=== PATIENT | male | born 1975 | race Caucasian/White ===

== ENCOUNTER 2020-07-24 11:43 | Outpatient (CLI) | payer BC, SELFPAY ==
--- NOTE | 2020-07-24 12:24 | ECG_ITS ---
Measurements Intervals [place] Rate: 49 P: 54 [place]: 135 QRS: 64 QRSD: 104 T: 44 QT: 424 QTc: 386 Interpretive Statements SINUS BRADYCARDIA INCOMPLETE RIGHT BUNDLE BRANCH BLOCK BASELINE ARTIFACT- I, II, III ABNORMAL ECG Electronically Signed On 07-24-2020 13:04:52 CDT by Jerry Joyce D.O.
[2020-07-24 13:29] LABS: Basophils Percent Auto 0.5 % (0.2-1.2); Eosinophils Absolute Auto 0.1 K/mm3 (0-0.3); Eosinophils Percent Auto 0.9 % (0-4.4); Hematocrit 45.8 % (42.0-52.0); Hemoglobin 15.2 g/dL (14.0-18.0); Immature Granulocyte Absolute 0.02 K/mm3 (0.00-0.031); Immature Granulocyte Percent A 0.3 % (0-0.5); Lymphocytes Absolute Auto 1.76 K/mm3 (0.9-3.2); Lymphocytes Percent Auto 22.5 % (18.3-44.2); Mean Corpuscular HGB Conc 33.2 g/dl (32-36); Mean Corpuscular Hemoglobin 29.7 pg (26-34); Mean Corpuscular Volume 89.6 fl (80-100); Mean Platelet Volume 9.4 fl (7.4-10.4); Monocytes Absolute Auto 0.6 K/mm3 (0.1-0.6); Monocytes Percent Auto 7.2 % (2.6-8.5); Neutrophils Absolute Auto 5.4 K/mm3 (1.3-6.7); Neutrophils Percent Auto 68.6 % (45.5-73.1); Platelet Count Result 303 k/mm3 (150-375); Red Blood Count 5.11 M/mm3 (4.6-6.20); Red Cell Distribution Width 11.5 % (11.5-14.5); White Blood Count 7.8 K/mm3 (4.5-10.0)
[2020-07-24 13:32] LABS: Alanine Aminotransferase 19 U/L (4-50); Albumin Level 4.6 g/dL (3.5-5.1); Alkaline Phosphatase 40 U/L (38-126); Anion Gap 4 mmol/L (8-16); Aspartate Amino Transferase 31 U/L (17-59); Bilirubin,Total 0.4 mg/dL (0.2-1.3); Blood Urea Nitrogen 22 mg/dL (9-20); Calcium 9.5 mg/dL (8.4-10.2); Carbon Dioxide 34 mmol/L (22-30); Chloride 101 mmol/L (98-107); Estimated Glomerular Filt Rate 60; Glucose 101 mg/dL (75-110); Potassium 4.2 mmol/L (3.4-5.0); Sodium 139 mmol/L (137-145)
[2020-07-24 13:54] LABS: INR 0.9; Prothrombin Time 12.7 Seconds (11.1-14.7)
[2020-07-24 13:55] LABS: Partial Thromboplastin Time 26.3 SECONDS (22.3-36.8)
== END 2020-07-24 11:44 | disposition home or self-care (01) ==
LOC: ANHSURGERY 11:48
PROVIDERS: PCP Family Medicine Adolescent Medicine; Visit Provider Urology
DX: Z01.818 Encounter for other preprocedural examination (principal); C61 Malignant neoplasm of prostate; R00.1 Bradycardia, unspecified; I45.10 Unspecified right bundle-branch block; Z51.81 Encounter for therapeutic drug level monitoring; Z79.899 Other long term (current) drug therapy
CPT/HCPCS: 36415; 80053; 85025; 85610; 85730; 86850; 86900; 86901; 87086; 93005

== ENCOUNTER → 2020-07-29 00:58 | Outpatient (CLI) | payer BC, SELFPAY ==
[2020-07-29 19:43] LABS: SARS-CoV-2 RNA PCR Negative
== END ==
PROVIDERS: PCP Family Medicine Adolescent Medicine; Visit Provider Urology
DX: Z01.812 Encounter for preprocedural laboratory examination (principal); Z20.822 Contact with and (suspected) exposure to COVID-19
CPT/HCPCS: C9803; U0003; U0005

== ENCOUNTER 2020-08-02 16:08 | Observation (INO) | payer BC, SELFPAY ==
[2020-07-24 12:07] VITALS: BP 140/84; PULSE 56; RESP 18; TEMP 36.8; O2SAT 98; BMI 27.1
[2020-08-01] VITALS (13 sets, daily range): BP systolic 111–151; BP diastolic 45–97; PULSE 41–69; RESP 10–20; TEMP 35.8–37.2; O2SAT 96–100; BMI 26.4
[2020-08-01] MEDS: LACTATED RINGERS 1,000 ML 30 ML IV CONT ×3 (06:29→12:47)
--- NOTE | 2020-08-01 06:35 | WPDANESEPPF ---
Anes - Initial Pre Proc Eval Procedure: Operation Date: 08/01/20 07:30 Proposed Procedures p Robotic Assisted Nerve Sparing Prostatectomy With Possible Pelvic Lymph Node Dissection - Jose Manuel Garcia MD Date/Time: 08/01/20 06:35 Surgeon: Jose Manuel Garcia MD Pre Op Diagnosis: Prostate Cancer Patient Data Age: 44 Gender: M Height: 6 ft 3 in Weight: 98.3 kg Last Vital Signs Temp 36.8 C 07/24/20 12:07 Pulse 56 L 07/24/20 12:07 Resp 18 07/24/20 12:07 BP 140/84 07/24/20 12:07 Pulse Ox 98 07/24/20 12:07 Allergies Allergy/AdvReac Type Severity Reaction Status Date / Time No Known Allergies Allergy Verified 07/24/20 12:02 Home Medications Medication Instructions Recorded Confirmed Type albuterol 90 mcg INHALATION PRN 07/24/20 07/24/20 History buspirone 10 mg BID 07/24/20 07/24/20 History lamotrigine 75 mg QAM 07/24/20 07/24/20 History loratadine [Claritin] 10 mg PO QAM 07/24/20 07/24/20 History Patient hx anesthesia problems: none Family hx anesthesia problems: none PMFSH Past Medical History Medical History (Updated 08/01/20 @ 06:39 by Lorenzo Mcnulty MD) Depression Prostate CA Seasonal allergies Surgical History Surgical History (Updated 08/01/20 @ 06:39 by Lorenzo Mcnulty MD) H/O wrist surgery Social History Social History Smoking status: Never smoker Second hand tobacco smoke exposure: No Alcohol intake: never Substance use: never Substance use type: does not use Living arrangements: alone Spiritual care concerns: No Anes - Eval Final PreProcedure Day of Procedure 08/01/20 06:35 Patient weight: normal Heart: regular rate and rhythm Lungs: clear to auscultation Airway: Mallampati scale class 1 Neurological: alert and oriented Last oral intake: >/= 8 hours ASA classification: II Emergent: no Anesthetic plan: proceed Anesthesia type and monitoring: general ETT and standard monitoring Informed Consent: The patient's anesthetic plan and its attendant risks and benefits were discussed with the patient/family/POA. Questions were solicited and answers provided to the satisfaction of the patient/family/POA.
--- NOTE | 2020-08-01 07:02 | WPDHPUPDATE1 ---
History and Physical Update Update Date/Time: 08/01/20 07:02 History and Physical has been reviewed, including an updated exam of the patient. There are NO changes in the patient's condition. Risks, benefits, and alternatives have been discussed and questions answered. Patient agrees to proceed with procedure. Robotic assist nerve sparing prostatectomy with plnd.
[2020-08-01] MEDS: BUPIVACAINE HCL 0.5% PF 30 ML VIAL INFILTRATE (07:50)
[2020-08-01] MEDS: ceFAZolin 2 GM/D5W 50 ML 2 GM/50 ML BAG IVPB (07:50)
[2020-08-01] MEDS: ceFAZolin SODIUM 1 GM VIAL IV PUSH (11:20)
--- NOTE | 2020-08-01 11:29 | PM.PROC ---
Procedure Note - Detailed Date of procedure: 08/01/20 Pre-op diagnosis: Prostate Cancer Post-op diagnosis: same Procedure performed: Robotic assisted nerve-sparing prostatectomy with left pelvic lymph node dissection Description of procedure: Patient is taken the operative suite and correctly identified. Once anesthesia was obtained was placed in dorsal lithotomy position prepped draped usual sterile fashion. Sixteen [place] Mensah with 20 cc in the balloon was placed. Midline incision was made and carried down to the rectus fascia. Veress needle was inserted in the abdomen insufflated to 15 mmHg pressure. Camera port was then placed in direct vision. Working ports were placed in locations in the robot was docked after patient was placed in steep Trendelenburg position. He had some adhesions of the left colon. These were taken down. Posterior approach was then performed. Seminal vesicles were dissected out in their entirety. Vas were clipped. Plane between the prostate and rectum was developed. Bladder was then dropped. The space of Retzius was developed bilaterally. Puboprostatic ligaments were transected. Dorsal venous complex was isolated using 0 Vicryl suture in secured to the pubic bone. Bladder neck sparing procedure was then performed. The posterior fascia was incised to expose the previously dissected seminal vesicles and vas. Vascular pedicles were clipped. Bilateral nerve-sparing was performed. Dorsal venous complex was then transected. Urethra was also transected. Specimen was placed in Endo-Catch bag. Left pelvic lymph node dissection was then performed with the boundaries being the external iliac vein obturator, obturator nerve, Darius's ligament, and bifurcation of the vessels. This also was placed in Endo-Catch bag. We then did a Francis stitch using 0 Vicryl. Anastomosis was performed using V lock suture in a running fashion. There was good approximation of the mucosa to mucosa. Sixteen [place] Mensah was placed with 10 cc in the balloon. 120 cc of saline were injected and the bladder filled nicely without any evidence of extravasation. All lap count needle count sponge counts were correct. Nikunj drain was placed through the 3rd arm port site and secured. Robot was undocked. Specimen was brought out through the midline incision. Midline incision was closed using 0 Vicryl in a running fashion. Subcuticular stitches were then placed. Incisions were anesthetized with lidocaine. Patient is taken recovery room stable condition. Anesthesia: GETA Surgeon: Jose Manuel Garcia MD Estimated blood loss (mL): 100 Drains: Yes Packing: No Pathology: yes Complications: No immediate complications Condition: stable Disposition: PACU
[2020-08-01] MEDS: fentaNYL CITRATE INJ (*CRX) 100 MCG/2 ML VIAL 25 MCG IV PUSH ×8 (12:07→13:28)
--- NOTE | 2020-08-01 13:05 | SUR.PHASEI ---
1300 sbar faxed floor notified
--- NOTE | 2020-08-01 13:44 | ADMGEN ---
This patient, Fredrick Valenzuela, was admitted to Medical Room 251-01. Patient/family oriented to hospital policies and general routines including ID bracelet, bed and alarms, visiting hours, pain management, procedures, bathroom and other care routines, personal items, smoking policy, room service/diet, and visiting hours. Information on how to activate the Rapid Response Team has been discussed. Patient/Family are encouraged to report perceived risks to care and to ask questions if they do not understand what they are told or what they should do.
--- NOTE | 2020-08-01 13:51 | SUR.PHASEI ---
1330 Kaylin Espino RN, ta Cobb Rn FROM ABOUT 1215 UNTIL patient was sent to 2nd medical floor.
[2020-08-01] MEDS: MORPHINE SULFATE (*CRX) 2 MG/ML INJ 1 MG IV PUSH ×4 (14:00→22:51)
[2020-08-01] MEDS: LACTATED RINGERS 1,000 ML 125 ML IV CONT ×2 (14:01→22:51)
--- NOTE | 2020-08-01 14:15 | PC.NURSE ---
Patient assisted to bathroom on his request to attempt to have a BM. Patient denied dizziness or lightheadedness when getting up. Ambulated with minimal assistance to the bathroom. Once in the bathroom on the toilet, patient stated, I feel nauseated . Patient then stated I'm going to pass out. Patient started leaning back on the toilet and not answering questions. Called for emergency help to room. Patient began answering questions within seconds. Appeared very pale and diaphoretic. Assisted patient into a wheelchair with assistance and patient assisted back to bed. VS taken - HR 50, B/P 116/45, pulse ox 98%. Patient lying in bed with HOB down. States he is starting to feel better. Mother at bedside. Dr. Garica notified of incident.
[2020-08-01] MEDS: KETOROLAC 30 MG/ML VIAL (*BKC) IV PUSH ×2 (15:07→20:02)
[2020-08-01] MEDS: ONDANSETRON INJ 4 MG/2 ML VIAL IV PUSH ×2 (15:23→19:32)
[2020-08-01] MEDS: busPIRone HCL 10 MG TABLET BY MOUTH (20:06)
[2020-08-02] MEDS: KETOROLAC 30 MG/ML VIAL (*BKC) IV PUSH (02:33)
[2020-08-02] MEDS: ONDANSETRON INJ 4 MG/2 ML VIAL IV PUSH ×2 (02:38→09:09)
[2020-08-02 03:21] VITALS: BP 126/59; PULSE 58; RESP 20; TEMP 37.2; O2SAT 98
[2020-08-02 05:50] LABS: Hemoglobin 12.7 g/dL (14.0-18.0)
[2020-08-02 05:56] LABS: Anion Gap 2 mmol/L (8-16); Blood Urea Nitrogen 12 mg/dL (9-20); Calcium 8.2 mg/dL (8.4-10.2); Carbon Dioxide 31 mmol/L (22-30); Chloride 104 mmol/L (98-107); Estimated CRCL calculation 90 ml/min; Estimated Glomerular Filt Rate > 60; Glucose 104 mg/dL (75-110); Potassium 3.6 mmol/L (3.4-5.0); Sodium 137 mmol/L (137-145)
[2020-08-02] MEDS: MORPHINE SULFATE (*CRX) 2 MG/ML INJ 1 MG IV PUSH ×3 (06:18→14:25)
[2020-08-02] MEDS: LACTATED RINGERS 1,000 ML 125 ML IV CONT (06:24)
[2020-08-02 06:37] VITALS: BP 121/61; PULSE 56; RESP 20; TEMP 37.1; O2SAT 98
--- NOTE | 2020-08-02 07:53 | WPDUROPN2 ---
Progress Note: A&P Assessment and Plan (1) Adenocarcinoma of prostate: Code(s): C61 - Malignant neoplasm of prostate Status: Acute Assessment and Plan: doing well postop day 1. Most likely discharged home later today if tolerates diet and ambulating. We will see with TIM output is this neck shift. Follow-up in a week's time for with the catheter cystogram Subjective Subjective Date/Time Seen: 08/02/20 07:53 Post Op day: 1 Principal diagnosis: adenocarcinoma of prostate Interval history: no major complaints this morning. feeling better after having some nausea last Review of Systems Review of Systems: All systems reviewed & are unremarkable except as noted in HPI and below Exam Const: General: cooperative, comfortable and no acute distress Chest: Chest palpation & inspection: normal inspection of the chest Resp: Effort & Inspection: normal respiratory effort Cardio: Rate: regular rate Rhythm: regular rhythm GI: Inspection: normal to inspection GI Palp: No abdominal tenderness and Yes Soft to palpation Urinary Catheter: Urinary Catheter: patent and draining and urine clear Objective Data Vital Signs Vital Signs: Vital Signs - 24 hr 08/01/20 11:45 08/01/20 12:00 08/01/20 12:15 Temperature 36.1 C L Pulse Rate 54 L 50 L 41 L Respiratory Rate 16 15 12 Blood Pressure 111/56 L 123/97 H 136/54 L Pulse Oximetry 100 100 100 08/01/20 12:30 08/01/20 12:45 08/01/20 13:00 Temperature Pulse Rate 52 L 50 L 52 L Respiratory Rate 16 10 L 18 Blood Pressure 131/60 141/78 H 136/86 Pulse Oximetry 100 97 98 08/01/20 13:15 08/01/20 13:40 08/01/20 13:55 Temperature 35.8 C L 35.9 C L Pulse Rate 47 L 48 L 52 L Respiratory Rate 12 16 16 Blood Pressure 140/77 148/70 H 151/73 H Pulse Oximetry 96 98 100 08/01/20 14:25 08/01/20 15:25 08/01/20 23:21 Temperature 35.9 C L 36.6 C 37.2 C Pulse Rate 50 L 49 L 59 L Respiratory Rate 18 18 20 Blood Pressure 116/45 L 137/63 131/63 Pulse Oximetry 99 100 99 08/02/20 03:21 08/02/20 06:37 Temperature 37.2 C 37.1 C Pulse Rate 58 L 56 L Respiratory Rate 20 20 Blood Pressure 126/59 L 121/61 Pulse Oximetry 98 98 Intake/Output Intake/Output: Intake & Output 07/30/20 07/31/20 08/01/20 08/02/20 23:59 23:59 23:59 23:59 Intake Total 2400 1950 Output Total 670 1260 Balance 1730 690 Meds/Results Medications: Active Medications Generic Name Dose Route Start Last Admin Trade Name Freq PRN Reason Stop Dose Admin Hydrocodone Bitart/Acetaminophen 1 tab 08/01/20 13:36 Hydrocodone/Acetaminophen (*Crx) 5-325 Mg Tablet PO Q6H PRN Pain Rated 1-3 Hydrocodone Bitart/Acetaminophen 2 tab 08/01/20 13:36 Hydrocodone/Acetaminophen (*Crx) 5-325 Mg Tablet PO Q6H PRN Pain Rated 4-6 Albuterol 2 puff 08/01/20 14:16 Albuterol Sulfate (*Sp) Aerosol 1 Puff INHALATION QIDRT PRN Shortness Of Breath Buspirone HCl 10 mg 08/01/20 21:00 08/01/20 20:06 Buspirone Hcl 10 Mg Tablet BY MOUTH 10 mg Q12HR PAULETTE Administration Docusate Sodium 100 mg 08/01/20 17:00 08/01/20 16:35 Docusate Sodium 100 Mg Capsule PO Not Given BID PAULETTE Hyoscyamine 0.125 mg 08/01/20 13:36 Hyoscyamine Sulfate 0.125 Mg Tablet SUBLINGUAL Q4H PRN Bladder Spasm Lactated Ringer's 1,000 mls @ 125 mls/hr 08/01/20 13:36 08/02/20 06:24 Lr - Lactated Ringers Iv IV CONT 125 mls/hr .Q8H PAULETTE Administration Lamotrigine 75 mg 08/02/20 09:00 Lamotrigine 25 Mg Tablet BY MOUTH QAM PAULETTE Levofloxacin 500 mg 08/02/20 09:00 Levofloxacin Tab 500 Mg Tablet PO DAILY PAULETTE Loratadine 10 mg 08/02/20 09:00 Loratadine 10 Mg Tablet PO QAM PAULETTE Morphine Sulfate 1 mg 08/01/20 13:36 08/02/20 06:18 Morphine Sulfate (*Crx) 2 Mg/Ml Inj IV PUSH 1 mg Q2H PRN Administration Pain Rated 7-10 Naloxone HCl 0.1 mg 08/01/20 13:36 Naloxone Hcl 0.4 Mg/Ml Vial IV PUSH Q2M P
[2020-08-02] MEDS: busPIRone HCL 10 MG TABLET BY MOUTH ×2 (09:06→19:51)
[2020-08-02] MEDS: LORATADINE 10 MG TABLET PO (09:07)
[2020-08-02] MEDS: DOCUSATE SODIUM 100 MG CAPSULE PO ×2 (09:07→19:52)
[2020-08-02] MEDS: lamoTRIgine 25 MG TABLET 75 MG BY MOUTH (09:07)
[2020-08-02] MEDS: HYDROcodone/acetaminophen (*CRX) 5-325 MG TABLET 2 TAB PO ×2 (09:07→15:17)
--- NOTE | 2020-08-02 09:22 | WPDANESPN ---
Anes - Prog Note Post-Op Date/Time: 08/02/20 09:22 Cardiovascular status: normal Respiratory status: normal Airway patency: baseline Mental status: baseline Post-Op hydration status: normal Vital Signs: Last Vital Signs Temp 37.1 C 08/02/20 06:37 Pulse 56 L 08/02/20 06:37 Resp 20 08/02/20 06:37 BP 121/61 08/02/20 06:37 Pulse Ox 98 08/02/20 06:37 Pain Score (VAS): no c/o pain I/O: Intake & Output 08/01/20 08/02/20 08/02/20 23:59 07:59 15:59 Intake Total 1850 1950 Output Total 510 1260 Balance 1340 690 Laboratory Tests 08/02/20 05:28 08/02/20 05:28 08/02/20 08/02/20 05:28 05:28 Hgb 12.7 L Hct 37.0 L Sodium 137 Potassium 3.6 Chloride 104 Carbon Dioxide 31 H Anion Gap 2 L BUN 12 D Creatinine 1.10 Estim Creat Clear Calc 90 Estimated GFR > 60 Glucose 104 Calcium 8.2 L Post-procedural complaints: none Patient Feedback: Patient satisfied with anesthetic care.
[2020-08-02 09:45] VITALS: BP 136/60; PULSE 69; RESP 16; TEMP 37.1; O2SAT 97
--- NOTE | 2020-08-02 12:00 | PC.NURSE ---
Patient encouraged to get up and walk and/or sit in chair. Patient sat in chair for a short time and stated he felt a little lightheaded . Has been in bed since and has not been agreeable to getting up to ambulate. Will continue to encourage patient.
[2020-08-02 14:00] VITALS: BP 145/68; PULSE 67; RESP 18; TEMP 36.1; O2SAT 97
--- NOTE | 2020-08-02 18:17 | PC.NURSE ---
Called Dr. Garcia and left voice message requesting IVF be d/nona. Patient tolerating po fluids and has had >3000 cc out in ambrocio catheter.
[2020-08-02 19:20] VITALS: BP 140/77; PULSE 66; RESP 16; TEMP 36.8; O2SAT 100
--- NOTE | 2020-08-02 19:27 | PC.NURSE ---
Patient turned his own IVF off stating I don't need any more fluids . Patient is tolerating po fluids well and has not had any vomiting. 3000cc output in ambrocio catheter today. Unable to reach Karolina HESS or Dr. Garcia regarding IVFs. Left message at office for Karolina HESS and left message on Dr. Garcia' cell phone regarding same. Patient does not wish to have his IVF restarted.
[2020-08-02] MEDS: KETOROLAC 10 MG TABLET PO (19:51)
[2020-08-03] MEDS: HYDROcodone/acetaminophen (*CRX) 5-325 MG TABLET 2 TAB PO ×2 (00:33→08:16)
[2020-08-03 04:35] VITALS: BP 122/74; PULSE 58; RESP 14; TEMP 36.3; O2SAT 98
[2020-08-03] MEDS: LORATADINE 10 MG TABLET PO (08:12)
[2020-08-03] MEDS: DOCUSATE SODIUM 100 MG CAPSULE PO (08:12)
[2020-08-03] MEDS: busPIRone HCL 10 MG TABLET BY MOUTH (08:12)
[2020-08-03] MEDS: lamoTRIgine 25 MG TABLET 75 MG BY MOUTH (08:12)
[2020-08-03 08:19] VITALS: RESP 16; O2SAT 98
--- NOTE | 2020-08-03 12:47 | WPDUROPN2 ---
Progress Note: A&P Assessment and Plan (1) Adenocarcinoma of prostate: Code(s): C61 - Malignant neoplasm of prostate Status: Acute Assessment and Plan: Ok to discharge home with ambrocio. Subjective Subjective Date/Time Seen: 08/03/20 12:47 Post Op day: 2 Principal diagnosis: adenocarcinoma of prostate Interval history: no major complaints this morning. feeling better after having some nausea yesterday and pain. Wants to go home, sitting up in chair this morning. TIM drain removed yesterday, minimal bleeding observed on dressing, it is dry and intact. Review of Systems Cardiovascular: Cardiovascular: Denies chest pain Respiratory: Respiratory: Reports no additional respiratory complaints Gastrointestinal: Gastrointestinal: Denies abdominal pain, Denies nausea and Denies vomiting Genitourinary: Genitourinary: Denies flank pain Exam Resp: Effort & Inspection: normal respiratory effort Cardio: Rate: regular rate GI: Inspection: incision (all are well approximated, no drainage, edema or redness) GI Palp: Yes Soft to palpation, No Tenderness to palpation present (GI) and Yes Other GI palpation findings present (TIM drain site is covered with a dry dressing, minimal bleeding present) : General: No no CVA tenderness Urinary Catheter: Urinary Catheter: patent and draining and urine clear Extrem: General: no edema Objective Data Vital Signs Vital Signs: Vital Signs - 24 hr 08/02/20 14:00 08/02/20 19:20 08/03/20 04:35 Temperature 96.9 F L 98.3 F 97.4 F L Pulse Rate 67 66 58 L Respiratory Rate 18 16 14 Blood Pressure 145/68 H 140/77 122/74 Pulse Oximetry 97 100 98 08/03/20 08:19 Temperature Pulse Rate Respiratory Rate 16 Blood Pressure Pulse Oximetry 98 Intake/Output Intake/Output: Intake & Output 07/31/20 08/01/20 08/02/20 08/03/20 23:59 23:59 23:59 23:59 Intake Total 2400 3820 1340 Output Total 515 4255 2500 Balance 7682 -282 -6875
--- NOTE | 2020-08-03 12:49 | PM.DS ---
DS: Admitting Diagnosis Admitting Diagnosis Admitting Diagnosis: Prostate Cancer DS: Discharge Diagnosis Discharge Diagnosis (1) Adenocarcinoma of prostate: Code(s): C61 - Malignant neoplasm of prostate Status: Acute DS: Summary Hospital Course Hospital Course: See below Time Spent with Patient Time attestation: Patient underwent a Robotic assisted nerve-sparing prostatectomy with left pelvic lymph node dissection on 08/01/2020. He tolerated the procedure well done by Dr. Gareth Garcia was transferred to recovery in stable condition and to the floor for further observation. He had significant drainage initially from his TIM drain which did taper off yesterday and it was removed without problem. He also struggled with nausea and pain post operatively, this is well controlled today. He will go home today with ambrocio catheter to be removed after Cystogram next week, on all previous home medications including hydrocodone, levsin, bactrim and colace. He will resume light activity, no straining or driving. Resume diet as tolerated. Exam Resp: Effort & Inspection: normal respiratory effort Cardio: Rate: regular rate GI: GI Palp: Yes Soft to palpation and No Tenderness to palpation present (GI) : General: Yes no CVA tenderness Urinary Catheter: Urinary Catheter: patent and draining and urine clear Extrem: General: no edema DS: Data Data Completed and Pending Pending studies at discharge: Pending at discharge 08/01/20 10:25 Surgical [PTH] Routine Discharge Plan Discharge Attending physician on discharge: Jose Manuel Garcia Discharging Clinician: Karolina Fagan Anticipated Discharge Date/Time: 08/03/20 10:27 Patient Disposition: Home, Self-Care Activity: may shower, no straining and may drive after 2 weeks Diet: as tolerated Wound Care Instructions: keep dressing dry and incision open to air Discharge Instructions: Follow up next week for Cystogram on 08/09/2020 at 11am arrive at 10:30, then immediately after come into the office for catheter removal pending cystogram results. Call the office if you develop a fever of >102, cloudy, malodorous urine or blood in the urine. Call the office if your incisions should start to drain. Change drain site dressing daily and PRN. Wash all incisions with soap and water and pat dry. Do not immerse in water such as a bath tub, swimming pool or hot tub. Patient Instructions: Ambrocio Catheter Placement and Care (DC), Urinary Leg Bag (GEN), Robot Assisted Laparoscopic Prostatectomy (GEN) Follow-up/Referrals: Jose Manuel Garcia MD [Physician] - Discharge Medications: New docusate sodium 100 mg Capsule 100 mg PO BID Qty: 14 RF: 0 hyoscyamine sulfate [Anaspaz] 0.125 mg Tablet,Disintegrating 0.125 mg sublingual Q4H PRN (Reason: Bladder Spasm) Qty: 20 RF: 0 ketorolac 10 mg Tablet 10 mg PO Q6H PRN (Reason: Pain Rated 4-6) 7 Days Qty: 28 RF: 0 sulfamethoxazole-trimethoprim [Bactrim DS] 800-160 mg tablet 1 tablet PO DAILY Qty: 7 RF: 0 Continued lamotrigine 25 mg tablet 75 mg QAM RF: 0 buspirone 10 mg tablet 10 mg BID RF: 0 albuterol 90 mcg/actuation Aerosol 90 mcg INHALATION PRN RF: 0 loratadine [Claritin] 10 mg Tablet 10 mg PO QAM RF: 0 Date of admission: 08/02/20 16:08 Primary Care Provider: Alon Krause Admitting Provider: Jose Manuel Garcia Attending physician on admission: Jose Manuel Garcia Condition: Improved
== END 2020-08-03 11:30 | disposition home or self-care (01) ==
LOC: ANHSURGERY 16:13 → ANH2MED 16:13
PROVIDERS: Admitting Provider Urology; PCP Family Medicine Adolescent Medicine; Visit Provider Urology
PROC: 0VT04ZZ Resection of Prostate, Percutaneous Endoscopic Approach (ICD-10-PCS; CPT 55867; principal; 2020-08-01 07:30)
DX: C61 Malignant neoplasm of prostate (principal); G89.18 Other acute postprocedural pain; R11.0 Nausea; F32.9 Major depressive disorder, single episode, unspecified; Z79.51 Long term (current) use of inhaled steroids
CPT/HCPCS: 55866; 38571; S2900; 36415; 80048; 85014; 85018; 88307; 88309; A9270; G0378; J0690; J1100; J1170; J1885; J2250; J2270; J2405; J2704; J2710; J3010; J7030; J7120

== ENCOUNTER 2020-08-09 10:29 | Outpatient (CLI) | payer BC, SELFPAY ==
--- NOTE | ~2020-08-09 | XR_ITS ---
EXAMINATION: XR cystogram EXAM DATE: 08/09/2020 11:08 INDICATION: Prostate cancer, prostatectomy. TECHNIQUE: Fluoroscopic guidance used during cystogram performed by Dr. Lacho Dave, radiologist, [facility] Mensah catheter in place on patient arrival. An Omnipaque 350/saline solution was used and allowe d to infuse through the Mensah catheter under gravity. Aquatic Biologist image, fluoroscopic images and postevacua tion image were obtained. Total fluoroscopic time of 0.1. The DAP for this procedure was 9 mGym2. A total of 22 images obtained for the exam. There is no prior study for comparison. FINDINGS: Aquatic Biologist image is unremarkable. Patient tolerated approximately 350 milliliters of distention. There was no contrast extravasation or ureteral reflux. Smooth bladder wall. IMPRESSION: Normal cystogram. Reviewed, dictated and finalized at location A. IMPRESSION: Normal cystogram.
== END 2020-08-09 10:30 | disposition home or self-care (01) ==
PROVIDERS: PCP Family Medicine Adolescent Medicine; Visit Provider Urology
DX: C61 Malignant neoplasm of prostate (principal)
CPT/HCPCS: 51600; 74430; Q9967

== ENCOUNTER 2021-02-23 10:37 | Outpatient (CLI) | payer BC, SELFPAY ==
--- NOTE | ~2021-02-23 | MR_ITS ---
EXAMINATION: MR pelvis wo/w con INDICATION: Malignant neoplasm of prostate TECHNIQUE: 3D Axial T2 Cube, Axial 2D FIESTA, Coronal SSFSE ARC, Axial and Coronal 2D FIESTA FatSat, Axial T2 FS, Axial SSFSE BH ARC, Axial 3D DualEcho BH, Axial SSFSE-IR Francesco, Axial DWI b=600, pre and d ynamic postcontrast Axial LAVA ARC, WATER:POST Cor LAVA-FLEX COMPARISON: None available CONTRAST: Multihance, 19 cc FINDINGS: There are changes of prostatectomy. No pathologically enlarged pelvic lymph nodes are ident ified. There are no dilated loops of bowel. Moderate lumbar spondylosis is noted. No abnormal enhance ment is present after contrast administration. IMPRESSION: 1. Changes of prostatectomy without evidence of metastatic disease. Reviewed, dictated and finalized at location B. EREAU CLERK
[2021-02-23 11:09] LABS: Estimated Glomerular Filt Rate 59
== END 2021-02-23 10:38 | disposition home or self-care (01) ==
PROVIDERS: PCP Family Medicine Adolescent Medicine; Visit Provider Radiology Radiation Oncology
DX: C61 Malignant neoplasm of prostate (principal); Z90.79 Acquired absence of other genital organ(s)
CPT/HCPCS: 72197; A9577

== ENCOUNTER 2022-01-16 10:26 | Outpatient (CLI) | payer BC, SELFPAY ==
[2022-01-16 10:58] LABS: Alanine Aminotransferase 18 U/L (6-50); Albumin Level 4.2 g/dL (3.5-5.1); Alkaline Phosphatase 42 U/L (38-126); Anion Gap 5 mmol/L (8-16); Aspartate Amino Transferase 28 U/L (17-59); Bilirubin,Total 0.5 mg/dL (0.2-1.3); Blood Urea Nitrogen 21 mg/dL (9-20); Calcium 9.1 mg/dL (8.4-10.2); Carbon Dioxide 31 mmol/L (22-30); Chloride 101 mmol/L (98-107); Cholesterol 193 mg/dL (0-200); Estimated Glomerular Filt Rate > 60; Glucose 103 mg/dL (65-110); HDL Direct 61 mg/dL; Potassium 4.3 mmol/L (3.4-5.0); Sodium 137 mmol/L (137-145); Triglycerides 64 mg/dL (<150)
[2022-01-16 11:09] LABS: LDL Cholesterol Direct 99 mg/dL
[2022-01-16 11:28] LABS: Prostate Specific Antigen < 0.1 ng/mL (< OR = 4.0)
== END 2022-01-16 10:27 | disposition home or self-care (01) ==
PROVIDERS: PCP Family Medicine Adolescent Medicine; Referring Provider Urology; Visit Provider Family Medicine Adolescent Medicine
DX: C61 Malignant neoplasm of prostate (principal); J45.20 Mild intermittent asthma, uncomplicated; Z13.220 Encounter for screening for lipoid disorders
CPT/HCPCS: 36415; 80053; 80061; 84153

== ENCOUNTER 2022-08-27 10:13 | Outpatient (CLI) | payer BC, SELFPAY ==
[2022-08-27 11:43] LABS: Prostate Specific Antigen < 0.1 ng/mL (< OR = 4.0)
== END 2022-08-27 10:14 | disposition home or self-care (01) ==
PROVIDERS: PCP Family Medicine Adolescent Medicine; Visit Provider Urology
DX: C61 Malignant neoplasm of prostate (principal)
CPT/HCPCS: 36415; 84153

== ENCOUNTER 2022-09-17 01:09 | Day surgery (SDC) | payer BC, SELFPAY ==
[2022-09-11 11:48] VITALS: BMI 26.2
--- NOTE | 2022-09-17 10:46 | P.PNAN_ITS ---
Anes - Initial Pre Proc Eval Procedure: Operation Date: 09/17/22 14:15 Proposed Procedures p Colonoscopy - Leonard Mark MD Date/Time: 09/17/22 10:46 Surgeon: Leonard Mark MD Pre Op Diagnosis: hemorrhage of anus and rectum Patient Data Age: 46 Gender: M Height: 1.91 m Weight: 95.3 kg Allergies Allergy/AdvReac Type Severity Reaction Status Date / Time No Known Allergies Allergy Verified 09/17/22 13:00 Home Medications Medication Instructions Recorded Confirmed Type loratadine 10 mg tablet (Claritin) 10 mg PO QAM 07/24/20 09/11/22 History albuterol sulfate 90 mcg/actuation 1 inh inhalation Q4H PRN shortness 12/06/21 09/11/22 Rx aerosol inhaler of breath or wheezing #8.5 grams lorazepam 1 mg tablet 1 mg PO TID PRN anxiety #30 tabs 12/06/21 09/11/22 Rx buspirone 10 mg tablet 10 mg PO BID #180 tabs 06/12/22 09/11/22 Rx lamotrigine 100 mg tablet 100 mg PO BID #180 tabs 06/12/22 09/11/22 Rx diclofenac sodium 1 % topical gel 1 g topical QID #100 grams 09/03/22 09/11/22 Rx Patient hx anesthesia problems: none Family hx anesthesia problems: none Results Review: All pre-operative results and documents have been reviewed as part of the pre- operative evaluation. [facility] Past Medical History Medical History (Updated 09/17/22 @ 10:47 by Zain Clark MD) Asthma, mild intermittent Depression Dupuytren's contracture of right hand History of prostate cancer (09/2019) Seasonal allergies Surgical History Surgical History H/O wrist surgery History of radical prostatectomy (07/2020) Family History Family History (Updated 12/06/21 @ 11:39 by Carolyne Diego MA) Mother Depression Father Malignant neoplasm of prostate Bladder cancer Grandparent Heart disease Hypertension Carcinoma of colon Parkinson disease Alzheimer disease Social History Social History (Updated 12/06/21 @ 11:39 by Carolyne Diego MA) Smoking status: Never smoker Second hand tobacco smoke exposure: No Alcohol intake: never Substance use: never Substance use type: does not use Living arrangements: alone Occupation/Education: occupation Gender identity (if verbalized by the patient): Male Spiritual care concerns: No Anes - Eval Final PreProcedure Day of Procedure 09/17/22 10:46 Patient weight: normal Heart: regular rate and rhythm Lungs: clear to auscultation Airway: Mallampati scale class 1 Neurological: alert and oriented Last oral intake: >/= 8 hours ASA classification: III Emergent: no Anesthetic plan: proceed Anesthesia type and monitoring: general GIVS and standard monitoring Results Review: All pre-operative results and documents have been reviewed as part of the pre- operative evaluation. Informed Consent: The patient's anesthetic plan and its attendant risks and benefits were discussed with the patient/family/POA. Questions were solicited and answers provided to the satisfaction of the patient/family/POA.
[2022-09-17 13:03] VITALS: BP 126/90; PULSE 71; RESP 20; TEMP 36.1; O2SAT 99
[2022-09-17] MEDS: LACTATED RINGERS 1,000 ML 150 ML IV CONT (13:20)
--- NOTE | 2022-09-17 14:17 | PM.HPGS ---
History of Present Illness History of Present Illness Consent: Risks, benefits, and alternatives have been discussed and questions answered. Patient agrees to proceed with procedure. Chief complaint: hemorrhage of anus and rectum Narrative: Fredrick Valenzuela is a 46 year old male with episode of rectal bleeding, never had colonoscopy, had prostate cancer with surgery and XRT Review of Systems Constitutional: Constitutional: Denies headache(s) and Denies weakness Eyes: Eyes: Denies blurry vision ENT: Reports Normal hearing present, Denies headache(s) and Denies neck pain Cardiovascular: Cardiovascular: Denies chest pain and Denies dyspnea Respiratory: Respiratory: Denies dyspnea Gastrointestinal: Gastrointestinal: Reports no additional gastrointestinal complaints Genitourinary: Genitourinary: Denies dysuria Musculoskeletal: Musculoskeletal: Denies neck pain Integumentary/Breasts: Skin/Breast: Denies dry skin Neurologic: Reports Normal hearing present, Denies headache(s) and Denies weakness Psychiatric: Psychiatric: Denies anxiety Endocrine: Endocrine: Denies change in body appearance Hematologic/Lymphatic: Hematologic/Lymphatic: Denies easy bleeding Allergic/Immunologic: Allergic/Immunologic: Denies urticaria PMFSH Past Medical History Medical History (Updated 09/17/22 @ 10:47 by Zain Clark MD) Asthma, mild intermittent Depression Dupuytren's contracture of right hand History of prostate cancer (09/2019) Seasonal allergies Surgical History Surgical History H/O wrist surgery History of radical prostatectomy (07/2020) Family History Family History (Updated 12/06/21 @ 11:39 by Carolyne Diego MA) Mother Depression Father Malignant neoplasm of prostate Bladder cancer Grandparent Heart disease Hypertension Carcinoma of colon Parkinson disease Alzheimer disease Social History Social History (Updated 12/06/21 @ 11:39 by Carolyne Diego MA) Smoking status: Never smoker Second hand tobacco smoke exposure: No Alcohol intake: never Substance use: never Substance use type: does not use Living arrangements: alone Occupation/Education: occupation Gender identity (if verbalized by the patient): Male Spiritual care concerns: No Meds Home Medications and Allergies Home Medications Medication Instructions Recorded Confirmed Type loratadine 10 mg tablet (Claritin) 10 mg PO QAM 07/24/20 09/11/22 History albuterol sulfate 90 mcg/actuation 1 inh inhalation Q4H PRN shortness 12/06/21 09/11/22 Rx aerosol inhaler of breath or wheezing #8.5 grams lorazepam 1 mg tablet 1 mg PO TID PRN anxiety #30 tabs 12/06/21 09/11/22 Rx buspirone 10 mg tablet 10 mg PO BID #180 tabs 06/12/22 09/11/22 Rx lamotrigine 100 mg tablet 100 mg PO BID #180 tabs 06/12/22 09/11/22 Rx diclofenac sodium 1 % topical gel 1 g topical QID #100 grams 09/03/22 09/11/22 Rx Allergies Allergy/AdvReac Type Severity Reaction Status Date / Time No Known Allergies Allergy Verified 09/17/22 13:00 Vital Signs Vital Signs - 24 hr 09/17/22 13:03 Temperature 97 F L Pulse Rate 71 Respiratory Rate 20 Blood Pressure 126/90 Pulse Oximetry 99 Oxygen Delivery Room Air Exam Const: General: comfortable and no acute distress HENMT: Face/Nose/Sinus: Normal nares present Eyes: General: appearance normal, both eyes and all related structures Neck: Neck: no JVD Resp: Auscultation: clear to auscultation bilaterally Cardio: Rate: regular rate Rhythm: regular rhythm GI: Inspection: non-distended GI Palp: Yes Soft to palpation Skin: General skin exam: normal color Neuro: General: gait normal Speech: normal speech Extrem: General: normal to inspection Psych: Mental Status: mental status grossly normal Assessment and Plan Assessment and plan (1) Rectal bleeding: Code(s): K62.5 - Hemorrhage of anus and rec
[2022-09-17 14:33] VITALS: BP 106/73; PULSE 56; RESP 22; O2SAT 99
[2022-09-17 14:43] VITALS: BP 105/63; PULSE 60; RESP 18; O2SAT 98
[2022-09-17 14:53] VITALS: BP 110/77; PULSE 66; RESP 18; O2SAT 98
== END 2022-09-17 15:04 | disposition home or self-care (01) ==
PROVIDERS: PCP Family Medicine Adolescent Medicine; Visit Provider Internal Medicine Gastroenterology
PROC: 0DJD8ZZ Inspection of Lower Intestinal Tract, Via Natural or Artificial Opening Endoscopic (ICD-10-PCS; CPT 45378; principal; 2022-09-17 14:15)
DX: Z12.11 Encounter for screening for malignant neoplasm of colon (principal); D12.3 Benign neoplasm of transverse colon; K55.20 Angiodysplasia of colon without hemorrhage; K64.8 Other hemorrhoids; K92.1 Melena; Z85.46 Personal history of malignant neoplasm of prostate; J45.20 Mild intermittent asthma, uncomplicated; F32.A Depression, unspecified; Z79.51 Long term (current) use of inhaled steroids
CPT/HCPCS: 45385; 45388; 88305; J2704; J7120

== ENCOUNTER 2023-03-11 14:01 | Outpatient (CLI) | payer BC, SELFPAY ==
[2023-03-11 15:26] LABS: Prostate Specific Antigen < 0.1 ng/mL (< OR = 4.0)
== END 2023-03-11 14:02 | disposition home or self-care (01) ==
PROVIDERS: PCP Family Medicine Adolescent Medicine; Visit Provider Urology
DX: C61 Malignant neoplasm of prostate (principal)
CPT/HCPCS: 36415; 84153

== ENCOUNTER → 2023-05-08 12:40 | Outpatient (CLI) | payer OTHER, SELFPAY ==
--- NOTE | ~2023-05-08 | MR_ITS ---
MRI of the lumbar spine Clinical History: Radiculopathy Technique: Axial T2-weighted images, and sagittal T1-weighted, T2-weighted, and T2 fat-sat images wer e acquired. Findings: There is no fracture or subluxation of the lumbar spine. Vertebral bodies maintain normal h eight and alignment. No suspicious bone marrow signal abnormality seen. At L1-L2, there is no disc bulge or herniation. There is moderate facet arthropathy. No central canal stenosis or neural foraminal narrowing. At L2-L3, there is no disc bulge or herniation. There is moderate facet arthropathy. No central canal stenosis or neural foraminal narrowing. L3-L4, there is minimal disc bulge and moderate facet arthropathy. No central canal stenosis. There i s moderate right neural foraminal narrowing, and mild left neural foraminal narrowing. L4-L5, there is mild disc bulge and advanced facet arthropathy. There is no central canal stenosis. T here is moderate left neural foraminal narrowing, and no significant right neural foraminal narrowing . At L5-S1, there is left paracentral to left foraminal disc extrusion, which impinges the descending l eft-sided S1-S2 level nerve root. There is moderate to advanced left neural foraminal narrowing at th is level as well. There is moderate right neural foraminal narrowing. No central canal stenosis, thou gh there is mild effacement of the anterior left side of the thecal sac at this level. Paravertebral soft tissues are unremarkable. Impression: Left paracentral to left foraminal disc extrusion at L5-S1, which narrows the left neural foramen at this level, and also impinges the descending left-sided S1-S2 level nerve root. Additional mild degenerative changes, as above. Reviewed, dictated and finalized at location . [employer]SEM[employer] Impression: Left paracentral to left foraminal disc extrusion at L5-S1, which narrows the l eft neural foramen at this level, and also impinges the descending left-sided S 1-S2 level nerve root. Additional mild degenerative changes, as above.
== END ==
PROVIDERS: PCP Anesthesiology Pain Medicine; Visit Provider Anesthesiology Pain Medicine
DX: M51.36 Other intervertebral disc degeneration, lumbar region (principal); M51.26 Other intervertebral disc displacement, lumbar region
CPT/HCPCS: 72148

== ENCOUNTER 2023-10-09 16:51 | Outpatient (CLI) | payer OTHER, SELFPAY ==
[2023-10-09 17:54] LABS: Prostate Specific Antigen < 0.1 ng/mL (< OR = 4.0)
== END 2023-10-09 16:52 | disposition home or self-care (01) ==
LOC: ANHLAB 16:53
PROVIDERS: PCP Family Medicine Adolescent Medicine; Visit Provider Urology
DX: C61 Malignant neoplasm of prostate (principal)
CPT/HCPCS: 36415; 84153

== ENCOUNTER 2024-02-12 14:13 | Outpatient (CLI) | payer OTHER, SELFPAY ==
--- NOTE | ~2024-02-12 | XR_ITS ---
MODIFIED ESOPHAGRAM HISTORY: Dysphagia. TECHNIQUE: Modified barium esophagram was performed on 02/12/2024. I administered fluoroscopy and per formed the exam with speech pathologist. Patient was seated for lateral fluoroscopic imaging for ing estion of thin liquids, pudding, solids and quantified amounts, followed by thin liquids in uncontrol led amounts. This was recorded on tape. A single fluoroscopic spot image was also recorded. The DAP f or this procedure was 1.239 Gycm2. The amount of fluoroscopy time used during this procedure was 0.9 minutes. FINDINGS: Oral stage: Adequate function. Pharyngeal stage: Adequate function. Cervical/esophageal stage: Adequate function. IMPRESSION: Patient tolerated regular consistency oral feedings in the upright position. Please edwardo elate with speech pathologist findings and specific feeding recommendations. Reviewed, dictated and finalized at location A. IMPRESSION: Patient tolerated regular consistency oral feedings in the upright position. Please correlate with speech pathologist findings and specific feedi ng recommendations.
[2024-02-12 16:13] LABS: Prostate Specific Antigen < 0.1 ng/mL (< OR = 4.0)
--- NOTE | 2024-02-12 16:45 | REHSTMBS ---
Assessment and note entered by Ree Calvert, HOME CARE MUSIC THERAPIST Modified Barium Swallow Evaluation Feeding Type Recommended Oral Food Consistency Regular, Level 7 Liquid Consistency Thin (0) ST Clinical Summary MODIFIED BARIUM SWALLOW STUDY Patient was seen for a Modified Barium Swallow study due to patient's complaints of food hanging up in the base of his throat, for about 2-3 years, worsening more recently. He reports that he has to crush his medications to take them safely and must sit upright, and alternate liquids with his solids in order to help them god down. Patient reported history of prostate cancer and GERD but no trauma or injury to the throat. Patient was viewed in the lateral position to the level of C5/C6. He was presented with thin liquid per cup, pudding mixed with semi-solid contrast medium, and then fruit cocktail and louis cracker pieces both coated with the pudding mixture. Patient also was given a barium pill with water. Patient exhibited quick swallows with no evidence of risk for penetration/aspiration. Patient may remain on regular diet and liquid consistencies. He was instructed to take small bites and sips, alternate liquids with solids. He may try whole pills again. He is referred back to his physician for further assessment of his complaints.
== END 2024-02-12 14:14 | disposition home or self-care (01) ==
LOC: ANHIMG 14:15
PROVIDERS: PCP Family Medicine Adolescent Medicine; Visit Provider Family Medicine Adolescent Medicine
DX: R13.10 Dysphagia, unspecified (principal); Z85.46 Personal history of malignant neoplasm of prostate
CPT/HCPCS: 36415; 84153; 92611

== ENCOUNTER 2024-03-24 12:49 | Outpatient (CLI) | payer OTHER, SELFPAY ==
--- NOTE | 2024-03-24 14:30 | NEURO_ITS ---
Impression: # Complains of numbness of left 4th and 5th fingers. ? # No Carpal Tunnel Syndrome. ? # Left ulnar neuropathy across the elbow. ? # Normal needle/EMG exam. Nerve Conduction Studies Anti Sensory Summary Table ?Stim Site NR Peak (ms) P-T Amp (?V) Site1 Site2 Delta-P (ms) Dist (cm) Boyd (m/s) Left Median Anti Sensory (2-3nd Digit) Wrist ? 4.5 32.2 Wrist 2-3nd Digit 4.5 14.0 31 Wrist ? 4.6 19.8 Wrist 2-3nd Digit 4.5 14.0 31 Left Radial Anti Sensory (Base 1st Digit) Wrist ? 2.3 23.9 Wrist Base 1st Digit 2.3 0.0 Left Ulnar Anti Sensory (5th Digit) Wrist ? 3.3 21.8 Wrist 5th Digit 3.3 14.0 42 Motor Summary Table ?Stim Site NR Onset (ms) O-P Amp (mV) Site1 Site2 Delta-0 (ms) Dist (cm) Boyd (m/s) Left Median Motor (Abd Poll Brev) Wrist ? 3.9 5.5 Elbow Wrist 6.4 36.0 56 Elbow ? 10.3 4.9 Left Ulnar Motor (Abd Dig Minimi) Wrist ? 2.8 4.8 A Elbow Wrist 7.2 35.0 49 A Elbow ? 10.0 4.0 B Elbow Wrist 5.0 27.0 54 B Elbow ? 7.8 8.8 F Wave Studies ?NR F-Lat (ms) L-R F-Lat (ms) Left Median (Mrkrs) (Abd Poll Brev) ? 31.87 Left Ulnar (Mrkrs) (Abd Dig Min) ? 32.75 EMG ?Side Muscle Nerve Root Ins Act Fibs Amp Dur Recrt Comment Left 1stDorInt Ulnar C8-T1 Nml Nml Nml Nml Nml Left Ext Indicis Radial (Post Int) C7-8 Nml Nml Nml Nml Nml Left Ext Digitorum Radial (Post Int) C7-8 Nml Nml Nml Nml Nml Left BrachioRad Radial C5-6 Nml Nml Nml Nml Nml Left PronatorTeres Median C6-7 Nml Nml Nml Nml Nml Left Abd Poll Brev Median C8-T1 Nml Nml Nml Nml Nml Left ABD Dig Min Ulnar C8-T1 Nml Nml Nml Nml Nml Left Biceps Musculocut C5-6 Nml Nml Nml Nml Nml Left Triceps Radial C6-7-8 Nml Nml Nml Nml Nml Left Deltoid Axillary C5-6 Nml Nml Nml Nml Nml MTDD
== END 2024-03-24 12:50 | disposition home or self-care (01) ==
PROVIDERS: PCP Family Medicine Adolescent Medicine; Visit Provider Family Medicine Adolescent Medicine
DX: G56.22 Lesion of ulnar nerve, left upper limb (principal)
CPT/HCPCS: 95886; 95909

== ENCOUNTER 2024-08-05 14:28 | Outpatient (CLI) | payer OTHER, SELFPAY ==
[2024-08-05 14:55] LABS: Add Urine Microscopic? NO; Appearance Urine Clear (Clear); Bilirubin Urine Negative (Negative); Blood Urine Negative (Negative); Color Urine Yellow (Yellow); Glucose Urine UA Negative (Negative); Ketones Urine Negative (Negative); Leukocyte Esterase Ur Negative LEU/UL (Negative); Nitrate Urine Negative (Negative); Protein Urine Negative (Negative); Specific Grav Ur 1.005 (1.001-1.035); Urobilinogen Urine 0.2 mg/dL (<2.0); pH Urine 6.5 (5.0-9.0)
[2024-08-05 15:31] LABS: Anion Gap 5 mmol/L (4-12); Blood Urea Nitrogen 16 mg/dL (9-20); Calcium 8.9 mg/dL (8.4-10.2); Carbon Dioxide 32 mmol/L (22-30); Chloride 99 mmol/L (98-107); Estimated Glomerular Filt Rate > 60; Glucose 109 mg/dL (65-110); Potassium 4.7 mmol/L (3.4-5.0); Sodium 136 mmol/L (137-145)
--- OUTSIDE RECORDS SUMMARY | 2024-08-05 15:43 | XMS_ITS | Continuity of Care Document ---
Author Organization [facility] Address [address] [place] [address] [place] [address] Phone Care Team Providers Care Sex Worker Or Escort Name Role Phone Monisha Natarajan MD Unavailable Unavailable Allergies, Adverse Reactions, Alerts Substance Reaction Status Criticality lactose Active No Information Procedures Procedure Date BIOP-PROSTATE NEEDLE SING/MULTI ANY APPR OA ULTRASONIC GUIDANCE NEEDLE BIOPSY,INTERP RETATION O OFFICE-NEW, LEVEL 3-MODERATE Advance Directives Directive Yes / No Effective Date File Name No Information Encounters Encounter Description Practice Location Reason(s) For Visit Diagnoses Date Provider Providers Copied on Encounter [facility], [address] [place] [address], [id number], tel:[phone] [facility] - 891 No Information Delgado Roe. [address] [place] [address], [id number], [place]. tel:[phone] [facility], [address] [place] [address], [id number], tel:[phone] [facility] - 891 No Information Delgado Roe. [address] [place] [address], [id number], [place]. tel:[phone] Referring Provider: Monisha Natarajan, [address] [place] [address], [id number]. tel:[phone] [facility], [address] [place] [address], [id number], tel:[phone] [facility] - 891 Elevated PSA Delgado Roe. [address] [place] [address], [id number], . tel:[phone] OFFICE-NEW, LEVEL 3-MODERATE [facility], [address] [place] [address], [id number], tel:[phone] [facility] - 891 No Information Delgado Roe. [address] [place] [address], [id number], [place]. tel:[phone] Referring Provider: Monisha Natarajan, [address] [place] [address], [id number]. tel:[phone] Family History Family Member Type Diagnosis Age At Onset No Information Payers Payer name Insurance type Covered constitution party ID Authoriza tion(s) No Information Social History Type Description Quantity Date Captured Comments Sex Male Smoking Status No Information Chief Complaint And Reason For Visit No Information Reason For Referral Reason For Referral No Information History Of Present Illness Encounter Date Complaint History Of Prese nt Illness No Information Functional Status Date Functional Assessmen t No Information Instructions Date Instruction Additional Infor mation No Information Assessments Type Assessment Date No Information Patient Care Teams Name Effective Dates (start - stop) Status Members No Information
--- OUTSIDE RECORDS SUMMARY | 2024-08-05 15:43 | XMS_ITS | Referral Summary ---
Author Organization [facility] Address [address] [place] [id number] Care Team Providers Care Housekeeping Cleaner Name Role Phone Alon Krause MD Primary Care Prov ider Encounters Date Type Department Care Team Description 08/04/2024 2:45 PM CDT - 08/04/2024 11:59 PM CDT Hospital Encounter [address] [address] Discharge Disposition: Discharge to home or self care from Last 3 Months Allergies No known active allergies Medications traZODone (DESYREL) 50 mg tabletIndicatio ns:insomnia associated with depression Take 1 tablet (50 mg total) by mouth nightly at bedtime 05/26/2023 Active buspirone HCl (BUSPIRONE ORAL)Indication s:anxiety Take 10 mg by mouth 2 (two) times a day 12/13/2022 Active lamoTRIgine (LaMICtal) 100 mg tabletIndicatio ns:Neuropathy Take 1 tablet (100 mg total) by mouth 2 (two) times a day 01/12/2023 Active LORazepam (ATIVAN) 1 mg tabletIndicatio ns:anxiety Take 1 tablet (1 mg total) by mouth every 8 (eight) hours as needed for anxiety 01/12/2023 Active naproxen (ALEVE) 220 mg tabletIndicatio ns:Pain Take 2 tablets (440 mg total) by mouth 2 (two) times a day with meals Active acetaminophen (TYLENOL) 500 mg tabletIndicatio ns:Pain Take 2 tablets (1,000 mg total) by mouth every 6 (six) hours as needed for pain Active albuterol HFA (PROVENTIL HFA,VENTOLIN HFA,PROAIR HFA) 90 mcg/actuation inhalerIndicati ons:Acute Asthma Attack Inhale 2 puffs every 6 (six) hours as needed for wheezing Active loratadine 10 mg capsuleIndicati ons:Allergic Rhinitis Take 1 tablet by mouth every morning Active Active Problems Problem Noted Date Diagnosed Date Lumbar disc herniation 06/26/2023 Foraminal stenosis of lumbar region 06/11/2023 Immunizations Immunization Administration Dates Next Due Influenza, Quadrivalent, Janey l Culture-based MDCK, Preservative Free, Antibiotic Free, Intramuscular 02/17/2023,03/17/2021 Influenza, Quadrivalent, Spl it, Preservative Free, Intramuscular 02/27/2022 Social History Tobacco Use Types Packs/Day Years Used Date Smoking Tobacco: Never Passive Smoke Exposure: Past Smokeless Tobacco: Never Tobacco Cessation:Counseling Given: No AUDIT-C Answer Date Recorded Q1: How often do you have a drink containing alcohol? Never 09/30/2023 Q2: How many drinks containi ng alcohol do you have on a typical day when you are drinking? Patient does not drink Q3: How often do you have si x or more drinks on one occasion? Never 09/30/2023 Personal Safety Answer Date Recorded Have you ever been in or are you currently in a harmful physical or emotional relationship or is someone making you feel afraid or unsafe? 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 Sexual Orientation Not on file Last Filed Vital Signs Vital Sign Reading Time Taken Comments Blood Pressure 139/83 06/26/2023 12:20 PM CDT Pulse 60 06/26/2023 12:30 PM CDT Temperature 35.8 C (96.4 F) 06/26/2023 10:40 AM CDT Respiratory Rate 18 06/26/2023 11:25 AM CDT Oxygen Saturation 96% 06/26/2023 12:30 PM CDT Inhaled Oxygen Concentration - - Weight 98.4 kg (217 lb) 09/30/2023 3:18 PM CDT Height 190.5 cm (6' 3 ) 09/30/2023 3:18 PM CDT Body Mass Index 27.12 09/30/2023 3:18 PM CDT Plan of Treatment Not on file Procedures Procedure Name Priority Date/Time Associated Diagnosis Comments EGFR Routine 08/04/2024 2:45 PM CDT DIFFERENTIAL AUTO Routine 08/04/2024 2:4 5 PM CDT CBC WITH AUTO DIFFERENTIAL Routine 08/04/2024 2:45 PM CDT GLUCOSE, RANDOM (OUTREACH) Routine 08/04/2024 2:45 PM CDT COMPREHENSIVE METABOLIC PANEL WITHOUT GLUCOSE (OUTREACH) Routine 08/04/2024 2:45 PM CDT HEPATITIS B SURFACE ANTIGEN Routine 08/04/2024 2:45 PM CDT from Last 3 Months Results * Glucose, random (Outreach) (08/04/2024 2:45 PM CDT) [facility] Signature Glucose 89 70 - 199 mg/dL Comment: Interpretive Data Fasting glucose >/= 126 mg/dl is diagnostic for diabetes. Fasting is defined as no caloric intake for at least 8 hours. Fasting glucose between 100 mg/dl to 125 mg/dl is diagnostic of prediabetes. In a patient with classic symptoms of hyperglycemia or hyperglycemic crisis, a random glucose >/= 200 mg/dl is diagnostic for diabetes. In the absence of unequivocal hyperglycemia, results should be confirmed by repeat testing. The classification and Diagnosis of Diabetes Diabetes Care 2021; 46: S19-S40. Current interpretive data was last revised 2022. Blood 08/04/2024 2:45 PM CDT 08/04/2024 7:26 PM CDT us Tl Quintana NP LAB BLOOD ORDERABLES Final Resul t [facility] [place] [address] * (ABNORMAL) eGFR (08/04/2024 2:45 PM CDT) Pathologist [facility] eGFR 58(L) >=60 mL/min/1. 73 m2 Comment: Interpretive Data Reference Interval Normal >/= 90 mL/min/1.73m2 Mildly decreased* 60 - 89 mL/min/1.73m2 Mildly to moderately decreased 45 - 59 mL/min/1.73m2 Moderately to severely decreased 30 - 44 mL/min/1.73m2 Severely decreased 15 - 29 mL/min/1.73m2 Kidney Failure < 15 mL/min/1.73m2 *Relative to young adult level Estimated glomerular filtration rate is determined by the 2020 CKD-EPI equation recommended by the National Kidney Foundation (A Unifying Approach to GFR Estimation: Recommendations of the NKF-ASK Task Force on Reassessing the Inclusion of Race in Diagnosing Kidney Disease, JASN 2020). The CKD-EPI equation should not be used for patients with unstable renal function and has not been validated in children and those over 70. Current interpretive data was last reviewed 2021. Blood 08/04/2024 2:45 PM CDT 08/04/2024 7:32 PM CDT us Tl Quintana NP LAB BLOOD ORDERABLES Final Resul t [facility] [place] [address] * (ABNORMAL) Differential, auto (08/04/2024 2:45 PM CDT) Pathologist [facility] Neutrophil abs 7.17(H) 1.50 - 6.50 K/cumm Imm gran abs 0.05 0.00 - 0.10 K/cumm [facility] Lymphocyte abs 1.07 0.80 - 3.30 K/cumm [facility] Monocyte abs 0.63 0.20 - 0.80 K/cumm [facility] Eosinophil abs 0.07 0.00 - 0.50 K/cumm [facility] Basophil abs 0.04 0.00 - 0.10 K/cumm [facility] Neutrophil pct 79.4 % [facility] Comment: Interpretive Data Percent cell count reference ranges are not reported, since discordance with absolute values may lead to misinterpretation of CBC data. Current Interpretive Data was last revised on 2017. Imm gran pct 0.6 % [facility] Comment: Interpretive Data Percent cell count reference ranges are not reported, since discordance with absolute values may lead to misinterpretation of CBC data. Current Interpretive Data was last revised on 2017. Lymphocyte pct 11.8 % [facility] Comment: Interpretive Data Percent cell count reference ranges are not reported, since discordance with absolute values may lead to misinterpretation of CBC data. Current Interpretive Data was last revised on 2017. Monocyte pct 7.0 % [facility] Comment: Interpretive Data Percent cell count reference ranges are not reported, since discordance with absolute values may lead to misinterpretation of CBC data. Current Interpretive Data was last revised on 2017. Eosinophil pct 0.8 % [facility] Comment: Interpretive Data Percent cell count reference ranges are not reported, since discordance with absolute values may lead to misinterpretation of CBC data. Current Interpretive Data was last revised on 2017. Basophil pct 0.4 % [facility] Comment: Interpretive Data Percent cell count reference ranges are not reported, since discordance with absolute values may lead to misinterpretation of CBC data. Current Interpretive Data was last revised on 2017. Blood 08/04/2024 2:45 PM CDT 08/04/2024 7:26 PM CDT us Tl Quintana NP LAB BLOOD ORDERABLES Final Resul t [facility] [place] [address] * (ABNORMAL) Comprehensive metabolic panel, without glucose (Outreach) (08/04/2024 2:45 PM CDT) Sodium 137 135 - 145 mmol/L Potassium, pl 4.8 3.3 - 4.9 mmol/L [facility] Chloride 100 97 - 110 mmol/L [facility] CO2 31 22 - 32 mmol/L [facility] Anion gap 6 2 - 15 mmol/L [facility] BUN 19 6 - 25 mg/dL [facility] Creatinine 1.47(H) 0.80 - 1.30 mg/dL [facility] Calcium 9.9 8.5 - 10.3 mg/dL [facility] Protein, pl 7.3 6.5 - 8.5 g/dL [facility] Albumin 4.4 3.5 - 5.0 g/dL [facility] Bilirubin, total 0.3 0.1 - 1.2 mg/dL [facility] Alk phos 48 40 - 130 Units/L [facility] AST 32 10 - 50 Units/L [facility] Comment:After removal of zee ss lipemia. ALT 22 7 - 55 Units/L [facility] Comment:After removal of zee ss lipemia. Blood 08/04/2024 2:45 PM CDT 08/04/2024 7:26 PM CDT us Tl Quintana NP LAB BLOOD ORDERABLES Final Resul t [facility] [place] [address] * CBC with auto differential (08/04/2024 2:45 PM CDT) Pathologist [facility] WBC 9.03 3.80 - 9.90 K/cumm Hgb 15.3 13.0 - 17.5 g/dL [facility] Hct 46.7 38.9 - 50.3 % [facility] Plt 312 150 - 400 K/cumm [facility] MPV 9.3 9.1 - 12.3 fL [facility] RBC 5.31 4.30 - 5.80 M/cumm [facility] MCV 87.9 81.3 - 96.4 fL [facility] MCH 28.8 27.1 - 33.3 pg [facility] MCHC 32.8 32.3 - 35.7 g/dL [facility] RDW CV 12.6 11.1 - 14.9 % [facility] RDW SD 41.0 35.7 - 48.1 fL [facility] NRBC abs 0.00 0.00 - 0.01 K/cumm [facility] Blood 08/04/2024 2:45 PM CDT 08/04/2024 7:26 PM CDT us Tl Quintana NP LAB BLOOD ORDERABLES Final Resul t [facility] [place] [address] * Hepatitis B Surface Antigen Blood (08/04/2024 2:45 PM CDT) HepBsAg Nonreactive Nonreactive Blood 08/04/2024 2:45 PM CDT 08/04/2024 7:27 PM CDT us Tl Quintana NP LAB MICROBIOLOGY - GENERAL ORDER LISET Final Result Performing Organization Address [facility] [[email or web address]] de Phone Number [facility] [place] [address] from Last 3 Months Insurance [facility] CHO[facility] PLUS [facility] CHO[facility] PLUS Care Teams Housekeeping Cleaner Relationship Specialty Start Date End Date Alon Krause MD [address] [place] [address] PCP - General Family Medicine 05/21/23
--- OUTSIDE RECORDS SUMMARY | 2024-08-05 15:44 | XMS_ITS | Clinical Summary ---
Author Organization [facility] Address [address] [place] [id number] Care Team Providers Care Welt Trimming Machine Operator Name Role Phone Alon Krause MD Primary Care Prov ider Allergies No known active allergies Medications traZODone [...] 06/26/2023 Foraminal stenosis of lumbar region 06/11/2023 Encounters Date Type Department Care Team Description 08/04/2024 2:45 PM CDT - 08/04/2024 11:59 PM CDT Hospital Encounter [place] [id number] Discharge Disposition: Discharge to home or self care from Last 3 Months Immunizations Immunization Administration Dates Next Due Influenza, Quadrivalent, Janey l Culture-based MDCK, Preservative Free, Antibiotic Free, Intramuscular 02/17/2023,03/17/2021 Influenza, Quadrivalent, Spl it, Preservative Free, Intramuscular 02/27/2022 Surgical History Surgery Date Site/Laterality Comments PROSTATECTOMY 04/14/2020 - 04/13/2021 Medical History Medical History Date Comments Asthma Chronic pain Prostate cancer (HCC) surgery an d radiation Family History Medical History Relation Name Comments Anesthesia problems Neg Hx Social History Tobacco Use Types Packs/Day Years [...] on file Legal 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 Gender Identity Male 06/03/2023 3:16 PM SCREEN VENT BINDER Sexual Orientation Not on file Obstetrics History Last Filed Vital Signs Vital Sign Reading [...] 09/30/2023 3:18 PM CDT Plan of Treatment Health Maintenance Due Date Last Done Comments Colon Cancer Screening-Colonoscopy 1974 Depression Screening 1974 Hepatitis C Screening 1974 DTaP/Tdap/Td Vaccine (1 - Tdap) 1985 Hepatitis B Screening 1992 Regular Well Visit/Exam 18-64 1992 Covid-19 Vaccine ( season) 2023 01/04/2023, 01/22/2022, 03/17/2021, Additional history exists Influenza Vaccine (Season Ended) 2024 02/17/2023, 02/27/2022, 03/17/2021 Pneumococcal vaccine <65 Aged Out No longer eligible based on patient's age to complete this topic Procedures Procedure Name Priority Date/Time Associated Diagnosis [...] Glucose, random (Outreach) (08/04/2024 2:45 PM CDT) Glucose 89 70 - 199 mg/dL Comment: [...] classification and Diagnosis of Diabetes Diabetes Care 202; 46: S19-S40. Current interpretive data was last revised 2022. Blood 08/04/2024 2:45 PM CDT 08/04/2024 7:26 PM CDT us Tl Quintana NP LAB BLOOD ORDERABLES Final Resul t [facility] Department [place] [address] * (ABNORMAL) eGFR (08/04/2024 2:45 PM CDT) eGFR 58(L) >=60 mL/min/1. 73 m2 Comment: [...] 08/04/2024 7:32 PM CDT us Tl Quintana CROP PULLER LAB BLOOD ORDERABLES Final Resul t [facility] One [facility] Department [place] [address] * (ABNORMAL) Differential, auto (08/04/2024 2:45 PM CDT) Neutrophil abs 7.17(H) 1.50 - 6.50 K/cumm Imm gran abs 0.05 0.00 - 0.10 K/cumm [facility] Lymphocyte abs 1.07 0.80 - 3.30 K/cumm [facility] Monocyte abs 0.63 0.20 - 0.80 K/cumm [facility] Eosinophil abs 0.07 0.00 - 0.50 K/cumm [facility] Basophil abs 0.04 0.00 - 0.10 K/cumm [facility] Neutrophil pct 79.4 % [facility] Comment: Interpretive Data Percent cell count reference ranges are not reported, since discordance with absolute values may lead to misinterpretation of CBC data. Current Interpretive Data was last revised on 2017. Imm gran pct 0.6 % [facility] Comment: Interpretive Data Percent cell count reference ranges are not reported, since discordance with absolute values may lead to misinterpretation of CBC data. Current Interpretive Data was last revised on 2017. Lymphocyte pct 11.8 % [facility] Comment: Interpretive Data Percent cell count reference ranges are not reported, since discordance with absolute values may lead to misinterpretation of CBC data. Current Interpretive Data was last revised on 2017. Monocyte pct 7.0 % [facility] Comment: Interpretive Data Percent cell count reference ranges are not reported, since discordance with absolute values may lead to misinterpretation of CBC data. Current Interpretive Data was last revised on 2017. Eosinophil pct 0.8 % [facility] Comment: Interpretive Data Percent cell count reference ranges are not reported, since discordance with absolute values may lead to misinterpretation of CBC data. Current Interpretive Data was last revised on 2017. Basophil pct 0.4 % [facility] Comment: Interpretive Data Percent cell count reference ranges are not reported, since discordance with absolute values may lead to misinterpretation of CBC data. Current Interpretive Data was last revised on 2017. Blood 08/04/2024 2:45 PM CDT 08/04/2024 7:26 PM CDT us Tl Quintana NP LAB BLOOD ORDERABLES Final Resul t Performing Organization Address [facility] de Phone Number [facility] One [facility] Department [place] [address] * (ABNORMAL) Comprehensive metabolic panel, without glucose (Outreach) (08/04/2024 2:45 PM CDT) Sodium 137 135 - 145 mmol/L Potassium, pl 4.8 3.3 - 4.9 mmol/L [facility] Chloride 100 97 - 110 mmol/L [facility] CO2 31 22 - 32 mmol/L [facility] Anion gap 6 2 - 15 mmol/L [facility] BUN 19 6 - 25 mg/dL [facility] Creatinine 1.47(H) 0.80 - 1.30 mg/dL [facility] Calcium 9.9 8.5 - 10.3 mg/dL [facility] Protein, pl 7.3 6.5 - 8.5 g/dL [facility] Albumin 4.4 3.5 - 5.0 g/dL [facility] Bilirubin, total 0.3 0.1 - 1.2 mg/dL [facility] Alk phos 48 40 - 130 Units/L [facility] AST 32 10 - 50 Units/L [facility] Comment:After removal of zee ss lipemia. ALT 22 7 - 55 Units/L [facility] Comment:After removal of zee ss lipemia. Blood 08/04/2024 2:45 PM CDT 08/04/2024 7:26 PM CDT us Tl Quintana NP LAB BLOOD ORDERABLES Final Resul t Performing Organization Address [facility] Co de Phone Number [facility] [place] [address] * CBC with auto differential (08/04/2024 2:45 PM CDT) [facility] WBC 9.03 3.80 - 9.90 K/cumm Hgb 15.3 13.0 - 17.5 g/dL [facility] Hct 46.7 38.9 - 50.3 % [facility] Plt 312 150 - 400 K/cumm [facility] MPV 9.3 9.1 - 12.3 fL [facility] RBC 5.31 4.30 - 5.80 M/cumm [facility] MCV 87.9 81.3 - 96.4 fL [facility] MCH 28.8 27.1 - 33.3 pg [facility] MCHC 32.8 32.3 - 35.7 g/dL [facility] RDW CV 12.6 11.1 - 14.9 % [facility] RDW SD 41.0 35.7 - 48.1 fL [facility] NRBC abs 0.00 0.00 - 0.01 K/cumm [facility] Blood 08/04/2024 2:45 PM CDT 08/04/2024 7:26 PM CDT us Tl Quintana NP LAB BLOOD ORDERABLES Final Resul t [facility] [place] [address] * Hepatitis B Surface Antigen Blood (08/04/2024 2:45 PM CDT) [facility] HepBsAg Nonreactive Nonreactive Blood 08/04/2024 2:45 PM CDT 08/04/2024 7:27 PM CDT us Tl Quintana NP LAB MICROBIOLOGY - GENERAL ORDER LISET Final Result [facility] [place] [address] from Last 3 Months Insurance [facility] Address: [address] [place] [address] [facility] Address: [address] [place] [address] Care Teams Welt Trimming Machine Operator Relationship Specialty Start Date End Date Alon Krause MD [address] [place] [address] PCP - General Family Medicine 05/21/23
--- OUTSIDE RECORDS SUMMARY | 2024-08-05 15:44 | XMS_ITS | Encounter Summary ---
Author Organization [facility] Address [address] [place] [address] Care Team Providers Care Implant Coordinator Name Role Phone Alon Krause MD Primary Care Prov ider Encounter Details Date Type Department Care Team (Latest Contact Info) Description 08/04/2024 2:45 PM CDT - 08/04/2024 11:59 [place] [address] Discharge Disposition: Discharge to home or self care Social History Tobacco Use Types Packs/Day Years Used Date Smoking Tobacco: Never Passive Smoke Exposure: Past Smokeless Tobacco: Never AUDIT-C Answer Date Recorded Q1: How often [...] on file 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 Gender Identity Male 06/03/2023 3:16 PM CLASSIFIER Sexual Orientation Not on file documented as of this encounter Medications at Time of Discharge acetaminophen (TYLENOL) 500 mg tabletIndications :Pain Take 2 tablets (1,000 mg total) by mouth every 6 (six) hours as needed for pain albuterol HFA (PROVENTIL HFA,VENTOLIN HFA,PROAIR HFA) 90 mcg/actuation inhalerIndication s:Acute Asthma Attack Inhale 2 puffs every 6 (six) hours as needed for wheezing buspirone HCl (BUSPIRONE ORAL)Indications: anxiety Take 10 mg by mouth 2 (two) times a day 12/13/2022 lamoTRIgine (LaMICtal) 100 mg tabletIndications :Neuropathy Take 1 tablet (100 mg total) by mouth 2 (two) times a day 01/12/2023 loratadine 10 mg capsuleIndication s:Allergic Rhinitis Take 1 tablet by mouth every morning LORazepam (ATIVAN) 1 mg tabletIndications :anxiety Take 1 tablet (1 mg total) by mouth every 8 (eight) hours as needed for anxiety 01/12/2023 naproxen (ALEVE) 220 mg tabletIndications :Pain Take 2 tablets (440 mg total) by mouth 2 (two) times a day with meals traZODone (DESYREL) 50 mg tabletIndications :insomnia associated with depression Take 1 tablet (50 mg total) by mouth nightly at bedtime 05/26/2023 documented as of this encounter Discharge Disposition Disposition Code Departure Means Destination Discharge to home or self care documented in this encounter Plan of Treatment Not on file documented as of this encounter Procedures Procedure Name Priority Date/Time Associated Diagnosis Comments GLUCOSE, RANDOM (OUTREACH) Routine 08/04/2024 2:45 PM CDT EGFR Routine 08/04/2024 2:45 PM CDT DIFFERENTIAL AUTO Routine 08/04/2024 2:4 5 PM CDT COMPREHENSIVE METABOLIC PANEL WITHOUT GLUCOSE (OUTREACH) Routine 08/04/2024 2:45 PM CDT CBC WITH AUTO DIFFERENTIAL Routine 08/04/2024 2:45 PM CDT HEPATITIS B SURFACE ANTIGEN Routine 08/04/2024 2:45 PM CDT documented in this encounter Results * (ABNORMAL) eGFR (08/04/2024 2:45 PM CDT) Pathologist [facility] eGFR 58(L) >=60 mL/min/1. 73 m2 Comment: [...] NP LAB BLOOD ORDERABLES Final Resul t [facility] Department [place] [address] * (ABNORMAL) Differential, auto (08/04/2024 2:45 PM CDT) Pathologist [facility] Neutrophil abs 7.17(H) 1.50 - 6.50 K/cumm Imm gran abs 0.05 0.00 - 0.10 K/cumm [facility] Lymphocyte abs 1.07 0.80 - 3.30 K/cumm [facility] Monocyte abs 0.63 0.20 - 0.80 K/cumm [facility] Eosinophil abs 0.07 0.00 - 0.50 K/cumm [facility] Basophil abs 0.04 0.00 - 0.10 K/cumm [facility] Neutrophil pct 79.4 % [facility] Comment: Interpretive Data Percent cell count reference ranges are not reported, since discordance with absolute values may lead to misinterpretation of CBC data. Current Interpretive Data was last revised on 2017. Imm gran pct 0.6 % [facility] Comment: [...] revised on 2017. Monocyte pct 7.0 % [facility] Comment: Interpretive Data Percent cell count reference ranges are not reported, since discordance with absolute values may lead to misinterpretation of CBC data. Current Interpretive Data was last revised on 2017. Eosinophil pct 0.8 % [facility] Comment: Interpretive Data Percent cell count reference ranges are not reported, since discordance with absolute values may lead to misinterpretation of CBC data. Current Interpretive Data was last revised on 2017. Basophil pct 0.4 % [facility] Comment: Interpretive Data Percent cell count reference ranges are not reported, since discordance with absolute values may lead to misinterpretation of CBC data. Current Interpretive Data was last revised on 2017. Blood 08/04/2024 2:45 PM CDT 08/04/2024 7:26 PM CDT us Tl Quintana SPORTS BOOK BOARD ATTENDANT LAB BLOOD ORDERABLES Final Resul t [facility] Department of Laboratories [place], [place] [id number] * Hepatitis B Surface Antigen Blood (08/04/2024 2:45 PM CDT) HepBsAg Nonreactive Nonreactive Blood 08/04/2024 2:45 PM CDT 08/04/2024 7:27 PM CDT us Tl Quintana NP LAB MICROBIOLOGY - GENERAL ORDER LISET Final Result Performing Organization Address [facility] Co de Phone Number [facility] [place] [address] * CBC with auto differential (08/04/2024 2:45 PM CDT) [facility] WBC 9.03 3.80 - 9.90 K/cumm Hgb 15.3 13.0 - 17.5 g/dL [facility] Hct 46.7 38.9 - 50.3 % [facility] Plt 312 150 - 400 K/cumm [facility] MPV 9.3 9.1 - 12.3 fL [facility] RBC 5.31 4.30 - 5.80 M/cumm [facility] MCV 87.9 81.3 - 96.4 fL [facility] MCH 28.8 27.1 - 33.3 pg [facility] MCHC 32.8 32.3 - 35.7 g/dL [facility] RDW CV 12.6 11.1 - 14.9 % [facility] RDW SD 41.0 35.7 - 48.1 fL [facility] NRBC abs 0.00 0.00 - 0.01 K/cumm [facility] Blood 08/04/2024 2:45 PM CDT 08/04/2024 7:26 PM CDT Tl Quintana NP LAB BLOOD ORDERABLES Final Resul t Performing Organization Address [facility] Co de Phone Number [facility] Department [place] [address] * Glucose, random (Outreach) (08/04/2024 2:45 PM CDT) [facility] Glucose 89 70 - 199 mg/dL Comment: [...] NP LAB BLOOD ORDERABLES Final Resul t [facility] Department [place] [address] * (ABNORMAL) Comprehensive metabolic panel, without glucose (Outreach) (08/04/2024 2:45 PM CDT) Sodium 137 135 - 145 mmol/L Potassium, pl 4.8 3.3 - 4.9 mmol/L [facility] Chloride 100 97 - 110 mmol/L [facility] CO2 31 22 - 32 mmol/L [facility] Anion gap 6 2 - 15 mmol/L [facility] BUN 19 6 - 25 mg/dL [facility] Creatinine 1.47(H) 0.80 - 1.30 mg/dL [facility] Calcium 9.9 8.5 - 10.3 mg/dL [facility] Protein, pl 7.3 6.5 - 8.5 g/dL [facility] Albumin 4.4 3.5 - 5.0 g/dL [facility] Bilirubin, total 0.3 0.1 - 1.2 mg/dL [facility] Alk phos 48 40 - 130 Units/L [facility] AST 32 10 - 50 Units/L [facility] Comment:After removal of zee ss lipemia. ALT 22 7 - 55 Units/L [facility] Comment:After removal of zee ss lipemia. Blood 08/04/2024 2:45 PM CDT 08/04/2024 7:26 PM CDT us Tl Quintana NP LAB BLOOD ORDERABLES Final Resul t [facility] [place] [address] documented in this encounter Visit Diagnoses Not on filedocumented in this encounter Care Teams Implant Coordinator Relationship Specialty Start Date End Date Alon Krause MD [address] [place] [address] PCP - General Family Medicine 05/21/23 documented as of this encounter
[2024-08-05 15:47] LABS: Prostate Specific Antigen < 0.1 ng/mL (< OR = 4.0)
== END 2024-08-05 14:29 | disposition home or self-care (01) ==
LOC: ANHLAB 14:30
PROVIDERS: PCP Family Medicine Adolescent Medicine; Visit Provider Family Medicine
DX: Z85.46 Personal history of malignant neoplasm of prostate (principal); R79.89 Other specified abnormal findings of blood chemistry; R31.9 Hematuria, unspecified
CPT/HCPCS: 36415; 80048; 81003; 84153

== ENCOUNTER 2024-08-26 10:23 | Outpatient (CLI) | payer OTHER, SELFPAY ==
--- NOTE | ~2024-08-26 | XR_ITS ---
Clinical Indication: Follow-up exam or possible nipple shadows PA and lateral views of the chest: Comparison: None Findings: The lungs are clear, without evidence of focal consolidation or pleural effusion. Cardiome diastinal silhouette is within normal limits. Bones and soft tissues are unremarkable. Impression: Normal chest. Reviewed, dictated and finalized at location . Impression: Normal chest.
--- OUTSIDE RECORDS SUMMARY | 2024-08-26 10:34 | XMS_ITS | Referral Summary ---
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 Department [place] [address] * (ABNORMAL) eGFR (08/04/2024 2:45 PM CDT) Pathologist [facility] eGFR 58(L) >=60 mL/min/1. 73 m2 Comment: [...] NP LAB BLOOD ORDERABLES Final Resul t [facility] Department [place] [address] * (ABNORMAL) Differential, auto (08/04/2024 2:45 PM CDT) Pathologist [facility] Neutrophil abs 7.17(H) 1.50 - 6.50 K/cumm Imm gran abs 0.05 0.00 - 0.10 K/cumm [facility] Lymphocyte abs 1.07 0.80 - 3.30 K/cumm [facility] Monocyte abs 0.63 0.20 - 0.80 K/cumm [facility] Eosinophil abs 0.07 0.00 - 0.50 K/cumm [facility] Basophil abs 0.04 0.00 - 0.10 K/cumm [facility] Neutrophil pct 79.4 % [facility] Comment: Interpretive Data Percent cell count reference ranges are not reported, since discordance with absolute values may lead to misinterpretation of CBC data. Current Interpretive Data was last revised on 2017. Imm gran pct 0.6 % [facility] Comment: Interpretive Data Percent cell count reference ranges are not reported, since discordance with absolute values may lead to misinterpretation of CBC data. Current Interpretive Data was last revised on 2017. Lymphocyte pct 11.8 % [facility] Comment: Interpretive Data Percent cell count reference ranges are not reported, since discordance with absolute values may lead to misinterpretation of CBC data. Current Interpretive Data was last revised on 2017. Monocyte pct 7.0 % [facility] Comment: Interpretive Data Percent cell count reference ranges are not reported, since discordance with absolute values may lead to misinterpretation of CBC data. Current Interpretive Data was last revised on 2017. Eosinophil pct 0.8 % [facility] Comment: Interpretive Data Percent cell count reference ranges are not reported, since discordance with absolute values may lead to misinterpretation of CBC data. Current Interpretive Data was last revised on 2017. Basophil pct 0.4 % [facility] Comment: Interpretive Data Percent cell count reference ranges are not reported, since discordance with absolute values may lead to misinterpretation of CBC data. Current Interpretive Data was last revised on 2017. Blood 08/04/2024 2:45 PM CDT 08/04/2024 7:26 PM CDT us Tl Quintana NP LAB BLOOD ORDERABLES Final Resul t [facility] Department [place] [address] * (ABNORMAL) Comprehensive metabolic panel, without glucose (Outreach) (08/04/2024 2:45 PM CDT) Sodium 137 135 - 145 mmol/L Potassium, pl 4.8 3.3 - 4.9 mmol/L [facility] Chloride 100 97 - 110 mmol/L [facility] CO2 31 22 - 32 mmol/L [facility] Anion gap 6 2 - 15 mmol/L [facility] BUN 19 6 - 25 mg/dL [facility] Creatinine 1.47(H) 0.80 - 1.30 mg/dL [facility] Calcium 9.9 8.5 - 10.3 mg/dL [facility] Protein, pl 7.3 6.5 - 8.5 g/dL [facility] Albumin 4.4 3.5 - 5.0 g/dL [facility] Bilirubin, total 0.3 0.1 - 1.2 mg/dL [facility] Alk phos 48 40 - 130 Units/L [facility] AST 32 10 - 50 Units/L [facility] Comment:After removal of zee ss lipemia. ALT 22 7 - 55 Units/L [facility] Comment:After removal of zee ss lipemia. Blood 08/04/2024 2:45 PM CDT 08/04/2024 7:26 PM CDT us Tl Quintana NP LAB BLOOD ORDERABLES Final Resul t [facility] Department [place] [address] * CBC with auto differential (08/04/2024 2:45 PM CDT) Pathologist [facility] WBC 9.03 3.80 - 9.90 K/cumm Hgb 15.3 13.0 - 17.5 g/dL [facility] Hct 46.7 38.9 - 50.3 % [facility] Plt 312 150 - 400 K/cumm [facility] MPV 9.3 9.1 - 12.[address] [facility] RBC 5.31 4.30 - 5.80 M/cumm [facility] MCV 87.9 81.3 - 96.[address] [facility] MCH 28.8 27.1 - 33.[address] [facility] MCHC 32.8 32.3 - 35.7 g/dL [facility] RDW CV 12.6 11.1 - 14.9 % [facility] RDW SD 41.0 35.7 - 48.[address] [facility] NRBC abs 0.00 0.00 - 0.01 K/cumm [facility] Blood 08/04/2024 2:45 PM CDT 08/04/2024 7:26 PM CDT us Tl Quintana NP LAB BLOOD ORDERABLES Final Resul t [facility] Department [place] [address] * Hepatitis B Surface Antigen Blood (08/04/2024 2:45 PM CDT) HepBsAg Nonreactive Nonreactive Blood 08/04/2024 2:45 PM CDT 08/04/2024 7:27 PM CDT us Tl Quintana NP LAB MICROBIOLOGY - GENERAL ORDER LISET Final Result Performing Organization Address [facility] de Phone Number [facility] Department [place] [address] from Last 3 Months Insurance [facility] CHO[facility] H[facility]/PPO Address: [address] [address] [facility] CHO[facility] PLUS [facility]/PPO Address: [place] [address] Care Teams Gold Leaf Gilder Relationship Specialty Start Date End Date Alon Krause MD [address] [place] [address] PCP - General Family Medicine 05/21/23
--- OUTSIDE RECORDS SUMMARY | 2024-08-26 10:34 | XMS_ITS | Continuity of Care Document ---
Author Organization [facility] Address [address] [place] [address] [place] [address] Phone Care Team Providers Care Garden Tractor Mechanic Name Role Phone Monisha Natarajan MD Unavailable [...] Diagnoses Date Provider Providers Copied on Encounter [facility], [address] [place] [address], [id number], tel:[phone] [facility] Urology - 891 No Information Delgado Roe. [address] [place] [address], [id number], [place]. tel:[phone] [facility], [address] [place] [address], [id number], tel:[phone] [facility] Urology - 891 No Information Delgado Roe. [address] [place] [address], [id number], [place]. tel:[phone] Referring Provider: Monisha Natarajan, [address] [place] [address], [id number]. tel:[phone] [facility], [address] [place] [address], [id number], tel:[phone] [facility] Urology - 891 Elevated PSA Delgado Roe. [address] [place] [address], [id number], . tel:[phone] OFFICE-NEW, LEVEL 3-MODERATE [facility], [address] [place] [address], [id number], tel:[phone] [facility] Urology - 891 No Information Delgado Roe. [address] [place] [address], [id number], [place]. tel:[phone] Referring Provider: Monisha Natarajan, [address] [place] [address], [id number]. tel:[phone] Family History Family Member Type Diagnosis Age [...]
--- OUTSIDE RECORDS SUMMARY | 2024-08-26 10:34 | XMS_ITS | Patient Health Record ---
Author Organization [facility] Address [address] [place] [address] Care Team Providers Care Glass Checker Name Role Phone Rach Toledoole Primary Care Provider Domitila Rubio Unavailable [phone] [employer], [facility] Unavailable U navailable Reason For Referral No Information Medications Medication SIG (Take, Route, Frequency, Duration) Notes Start Date End Date Status PROzac 10 MG 0.5 tablet for 1 week, then full tablet in the morning as tolerated Orally Once a day for 30 days Pt states, 07/10/2016 Not-Taking Vistaril 25 MG 1 capsule as needed Orally twice a day as needed for anxiety for 30 days Pt states he only took this the first week 07/10/2016 Active Albuterol 90 MCG/ACT Inhalation Active Fish Oil 1000 MG 1 capsule Orally Once a day for 30 day(s) 07/29/2017 Active LaMICtal 150 MG Take 1/2 tablet Orally twice a day for 30 day(s) Active Fish Oil 500 MG 1 capsule Orally Twice a day for 30 day(s) 07/28/2017 Active Claritin 10 MG 1 tablet Orally Once a day Active Vitamin D (Ergocalciferol) 72710 UNIT 1 capsule Orally once a week for 30 day(s) 07/28/2017 Active LaMICtal 100 MG 1/2 tablet Orally Twice a day for 30 day(s) 02/11/2017 Active traZODone HCl 50 MG 0.5-1 tablet at bedtime as needed Orally Once a day for 30 day(s) 07/03/2017 Active Social History Sex Assigned At : Social History Observation Description Sex Assigned At Male Problems Problem Type SNOMED Code ICD Code Onset Dates Problem Status W/U Status Risk Notes Problem 36521303 Adjustment disorder with depressed mood (F43.21) Active confirmed Problem Mood disorder (20680753) Mood disorder (F39) Active confirmed Problem 39294317 Anxiety (F41.9) Active confirmed Plan Of Treatment No Information Medical (General) History Medical History History ICD Code Depression Exercise induced asthma seasonal allergies
--- OUTSIDE RECORDS SUMMARY | 2024-08-26 10:34 | XMS_ITS | Clinical Summary ---
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 Gender Identity Male 06/03/2023 3:16 PM GREY PERCHER Sexual Orientation Not on file Obstetrics History [...] NP LAB BLOOD ORDERABLES Final Resul t [facility] Department [place] [address] * (ABNORMAL) eGFR (08/04/2024 2:45 PM CDT) [...] 08/04/2024 7:32 PM CDT us Tl Quintana TECHNICAL SUPPORT ANALYST LAB BLOOD ORDERABLES Final Resul t [facility] Department [place] [address] * (ABNORMAL) Differential, auto (08/04/2024 2:45 PM CDT) Neutrophil abs 7.17(H) 1.50 - 6.50 K/cumm Imm gran abs 0.05 0.00 - 0.10 K/cumm [facility] Lymphocyte abs 1.07 0.80 - 3.30 K/cumm [facility] Monocyte abs 0.63 0.20 - 0.80 K/cumm [facility] Eosinophil abs 0.07 0.00 - 0.50 K/cumm [facility] Basophil abs 0.04 0.00 - 0.10 K/cumm [facility] Neutrophil pct 79.4 % [facility] Comment: Interpretive Data Percent cell count reference ranges are not reported, since discordance with absolute values may lead to misinterpretation of CBC data. Current Interpretive Data was last revised on 2017. Imm gran pct 0.6 % [facility] Comment: Interpretive Data Percent cell count reference ranges are not reported, since discordance with absolute values may lead to misinterpretation of CBC data. Current Interpretive Data was last revised on 2017. Lymphocyte pct 11.8 % [facility] Comment: Interpretive Data Percent cell count reference ranges are not reported, since discordance with absolute values may lead to misinterpretation of CBC data. Current Interpretive Data was last revised on 2017. Monocyte pct 7.0 % [facility] Comment: Interpretive Data Percent cell count reference ranges are not reported, since discordance with absolute values may lead to misinterpretation of CBC data. Current Interpretive Data was last revised on 2017. Eosinophil pct 0.8 % [facility] Comment: Interpretive Data Percent cell count reference ranges are not reported, since discordance with absolute values may lead to misinterpretation of CBC data. Current Interpretive Data was last revised on 2017. Basophil pct 0.4 % [facility] Comment: Interpretive Data Percent cell count reference ranges are not reported, since discordance with absolute values may lead to misinterpretation of CBC data. Current Interpretive Data was last revised on 2017. Blood 08/04/2024 2:45 PM CDT 08/04/2024 7:26 PM CDT us Tl Quintana NP LAB BLOOD ORDERABLES Final Resul t Performing Organization Address [facility] de Phone Number [facility] Department [place] [address] * (ABNORMAL) Comprehensive metabolic panel, without glucose (Outreach) (08/04/2024 2:45 PM CDT) Sodium 137 135 - 145 mmol/L Potassium, pl 4.8 3.3 - 4.9 mmol/L [facility] Chloride 100 97 - 110 mmol/L [facility] CO2 31 22 - 32 mmol/L [facility] Anion gap 6 2 - 15 mmol/L [facility] BUN 19 6 - 25 mg/dL [facility] Creatinine 1.47(H) 0.80 - 1.30 mg/dL [facility] Calcium 9.9 8.5 - 10.3 mg/dL [facility] Protein, pl 7.3 6.5 - 8.5 g/dL [facility] Albumin 4.4 3.5 - 5.0 g/dL [facility] Bilirubin, total 0.3 0.1 - 1.2 mg/dL [facility] Alk phos 48 40 - 130 Units/L [facility] AST 32 10 - 50 Units/L [facility] Comment:After removal of zee ss lipemia. ALT 22 7 - 55 Units/L [facility] Comment:After removal of zee ss lipemia. Blood 08/04/2024 2:45 PM CDT 08/04/2024 7:26 PM CDT us Tl Quintana NP LAB BLOOD ORDERABLES Final Resul t Performing Organization Address [facility] Co de Phone Number [facility] [place] [address] * CBC with auto differential (08/04/2024 2:45 PM CDT) [facility] WBC 9.03 3.80 - 9.90 K/cumm Hgb 15.3 13.0 - 17.5 g/dL [facility] Hct 46.7 38.9 - 50.3 % [facility] Plt 312 150 - 400 K/cumm [facility] MPV 9.3 9.1 - 12.3 fL [facility] RBC 5.31 4.30 - 5.80 M/cumm [facility] MCV 87.9 81.3 - 96.4 fL [facility] MCH 28.8 27.1 - 33.3 pg [facility] MCHC 32.8 32.3 - 35.7 g/dL [facility] RDW CV 12.6 11.1 - 14.9 % [facility] RDW SD 41.0 35.7 - 48.1 fL [facility] NRBC abs 0.00 0.00 - 0.01 K/cumm [facility] Blood 08/04/2024 2:45 PM CDT 08/04/2024 7:26 PM CDT us Tl Quintana NP LAB BLOOD ORDERABLES Final Resul t [facility] [place] [address] * Hepatitis B Surface Antigen Blood (08/04/2024 2:45 PM CDT) [facility] HepBsAg Nonreactive Nonreactive Blood 08/04/2024 2:45 PM CDT 08/04/2024 7:27 PM CDT us Tl Quintana NP LAB MICROBIOLOGY - GENERAL ORDER LISET Final Result [facility] [place] [address] from Last 3 Months Insurance [facility] [employer] [facility] [employer] Care Teams News Producer Relationship Specialty Start Date End Date Alon Krause MD [address] [place] [address] PCP - General Family Medicine 05/21/23
== END 2024-08-26 10:24 | disposition home or self-care (01) ==
PROVIDERS: PCP Family Medicine Adolescent Medicine; Visit Provider Family Medicine
DX: R93.89 Abnormal findings on diagnostic imaging of other specified body structures (principal)
CPT/HCPCS: 71046

== ENCOUNTER 2024-12-15 09:20 | Outpatient (CLI) | payer BC, SELFPAY ==
--- NOTE | ~2024-12-15 | XR_ITS ---
EXAMINATION: XR foot RT min 3V DATE: 12/15/2024 09:36 INDICATION: Right first and second digit pain radiating to the foot. Injury 2 weeks ago TECHNIQUE: 3 images of the right foot were obtained. COMPARISON: None. FINDINGS: [ Mild degenerative change in the first metatarsophalangeal joint. Soft tissue swelling about the right foot. Small dorsal spur off of the hindfoot. [ No radiographic evidence for an acute fracture or dislocation.] [ No radiopaque foreign body.] [ No sclerotic or destructive bone lesions.] IMPRESSION: 1. [ No acute bony abnormality identified.] If symptoms persist or worsen consider a short-term follow-up study or additional imaging for further assessment. Reviewed, dictated and finalized at location Q. IMPRESSION: 1. [ No acute bony abnormality identified.] If symptoms persist or worsen consider a short-term follow-up study or addition al imaging for further assessment.
== END 2024-12-15 09:21 | disposition home or self-care (01) ==
LOC: MICIMG 09:23
PROVIDERS: PCP Family Medicine Adolescent Medicine; Visit Provider Family Medicine Adolescent Medicine
DX: M79.671 Pain in right foot (principal)
CPT/HCPCS: 73630

== ENCOUNTER 2024-12-20 11:00 | Outpatient (CLI) | payer BC, SELFPAY ==
--- NOTE | ~2024-12-20 | XR_ITS ---
EXAM/ PROCEDURE: XR wrist LT min 3V - 12/20/2024 11:03 CDT HISTORY: 49 years old Male with M25.532 - Pain in left wrist COMPARISON: None available TECHNIQUE: Three view(s) FINDINGS/ IMPRESSION: There are no fractures or dislocations.Joint spaces are within normal limits. Reviewed, dictated and finalized at location N.
== END 2024-12-20 11:01 | disposition home or self-care (01) ==
LOC: MICIMG 11:01
PROVIDERS: PCP Family Medicine Adolescent Medicine; Visit Provider Family Medicine Adolescent Medicine
DX: M25.532 Pain in left wrist (principal)
CPT/HCPCS: 73110

== ENCOUNTER 2025-01-21 12:23 | Outpatient (CLI) | payer BC, SELFPAY ==
[2025-01-21 13:40] LABS: Prostate Specific Antigen < 0.1 ng/mL (< OR = 4.0)
== END 2025-01-21 12:24 | disposition home or self-care (01) ==
LOC: ANHLAB 12:26
PROVIDERS: PCP Family Medicine Adolescent Medicine; Visit Provider Family Medicine
DX: Z85.46 Personal history of malignant neoplasm of prostate (principal)
CPT/HCPCS: 36415; 84153

== ENCOUNTER → 2025-02-07 10:41 | Outpatient (CLI) | payer BC, SELFPAY ==
--- NOTE | ~2025-02-07 | XR_ITS ---
EXAMINATION: [id number], 02/07/2025 11:05 CDT HISTORY: M79.671 - Pain in right foot COMPARISON: No comparisons available. Findings: No acute fracture or malalignment. No significant degenerative changes. Soft tissues unremarkable. Impression: No acute fracture or malalignment. Reviewed, dictated and finalized at location P. Impression: No acute fracture or malalignment.
== END ==
PROVIDERS: PCP Family Medicine; Visit Provider Family Medicine
DX: M79.671 Pain in right foot (principal)
CPT/HCPCS: 73630